=== PATIENT | male | born 1960 | race Caucasian/White ===

== ENCOUNTER 2023-08-21 10:17 | Day surgery (SDC) | payer OTHER, SELFPAY ==
[2023-08-21] VITALS (10 sets, daily range): BP systolic 117–144; BP diastolic 65–94; BMI 34.8
[2023-08-21] MEDS: LOW STRENGTH ASPIRIN 81 MG PO (11:12)
[2023-08-21] MEDS: NSS 302 ML IV (11:13)
[2023-08-21 11:18] LABS: Blood Urea Nitrogen 14 mg/dl (9-20); Calcium 9.1 mg/dl (8.4-10.2); Carbon Dioxide 22 mmol/L (22-30); Chloride 110 mmol/L (98-107); Estimated Creatinine Clearance 104 ml/min; Glucose 101 mg/dl (70-99); Potassium 4.3 mmol/L (3.5-5.1); Sodium 139 mmol/L (135-145); eGFR > 60.00
[2023-08-21 11:27] LABS: Hematocrit 41.2 % (39.0-52.0); Hemoglobin 13.5 g/dL (13.0-18.0); Mean Corp Hgb Conc. 32.8 g/dL (33.0-37.0); Mean Corpuscular Hgb 30.1 pg (27.0-31.0); Mean Corpuscular Volume 91.8 fL (80.0-94.0); Mean Platelet Volume 9.7 fL (7.4-10.4); Platelet Count 313 10^3/uL (130-400); Red Blood Cell Count 4.49 10^6/uL (4.70-6.10); Red Cell Dist. Width 14.3 % (11.5-14.5); White Blood Cell Count 5.9 10^3/uL (4.8-10.8)
[2023-08-21] MEDS: NSS 1000 IV (13:23)
--- NOTE | 2023-08-21 13:35 | ITS.CL.CATH ---
Public Welfare Director - Catheterization
Cardiac Catheterization
Procedure Report:
LEFT HEART CATHETERIZATION
Date of Procedure: August 21, 2023
Referring: Sunitha Petersen
PROCEDURES:
1. Left heart catheterization, coronary angiogram.
2. Ultrasound-guided access
INDICATION: Neville is a 63-year-old gentleman with past medical history of hypertension, hyperlipidemia, coronary artery disease status post prior RCA and LAD stents, paroxysmal atrial fibrillation post SC on chronic anticoagulation with Eliquis
which was recently started and family history of premature coronary artery disease with his father having an SC in his 50s who was referred for a left heart catheterization after a significantly abnormal stress test which was performed after he
presented to the emergency room for chest discomfort and shortness of breath and was treated recently for possible bronchitis. His exercise nuclear stress test was completed on August 19, 2023 during which she walked 5 minutes and 45 seconds by the
Yeison protocol, achieving 7 METS and 97% of maximum predicted heart rate with hypotensive response to exercise. ECG was positive for ischemia with [address] depressions inferiorly and in V4 and V5 at peak exercise. ECG changes were slowly resolving
recovery and not fully normalized by 10 minutes in recovery. Delayed ECG poststress imaging were completely normal. He had occasional PVCs. He experienced exertional dyspnea and chest tightness which resolved 2 minutes in recovery. Perfusion
imaging showed a large area of moderate to severely decreased perfusion that is reversible in the basal anterior, basal anterolateral, mid anterior, mid anterolateral, apical anterior and apical lateral segments consistent with ischemia, involving
20% of the myocardium. Transient ischemic dilatation was present with ratio positive at 1.23. Gated images revealed an LVEF of 48%. Functional imaging showed mild hypokinesis of the mid anterior, mid anterolateral and apical anterior segments.
His last dose of Eliquis was Saturday morning.
ACCESS:
1. Right radial artery, 6 Faroese sheath, under ultrasound guidance.
HEMODYNAMICS : (mmHg)
AO (s/d) : 140/79
LV (s/d) : 144/10
LVEDP : 17
CORONARY FINDINGS
DOMINANCE: Right
LEFT MAIN: The left main artery is a large-caliber vessel which gives rise to the left anterior descending artery and the left circumflex artery. There is distal left main--eccentric, hazy, calcified 70% stenosis.
LEFT ANTERIOR DESCENDING: The left anterior descending artery is a large-caliber vessel which gives rise to 1 major diagonal branch as it courses through the anterior interventricular groove into the apex. There is an eccentric ostial LAD 50-60%
stenosis extending from the distal left main.
CIRCUMFLEX: The left circumflex artery is a medium caliber vessel which gives rise to 2 major obtuse marginal branches and a left posterolateral branch. Ostial left circumflex has an eccentric 50 to 60% stenosis and proximal to mid circumflex has a
40-50% stenosis there is a 60-70% ostial OM stenosis. Distal left circumflex has a focal 70 to 80% stenosis proximal to the left posterolateral branch.
RIGHT CORONARY ARTERY: The right coronary artery is a large-caliber, dominant vessel which gives rise to the right posterior descending artery and the right posterolateral system. There is diffuse long segment in the mid RCA of up to 70% stenosis.
SEDATION: 24 minutes of procedural sedation was utilized. An independent medical insurance coding specialist was present to assist with and help manage the patient's level of consciousness and physiologic status.
RADIATION SUMMARY: Fluoro Time (min): 1.9, Dose (mGy): 319.13, DAP (Gy.cm2) : 19.6
Closure Device: Vascular band over right radial artery, 11 cc of air.
CONCLUSIONS
1. Multivessel coronary artery disease involving the distal left main in the setting of significantly abnormal stress test.
2. Mildly elevated LVEDP.
RECOMMENDATIONS
1. Goal-directed medical therapy for significant coronary artery disease.
2. Referral to CT surgery as an outpatient for possible coronary bypass grafting with grafts to the LAD, OM1 +/-OM 2, distal RCA/RPDA.
3. Aggressive management of cardiovascular risk factors.
4. Referral eventually for outpatient cardiac rehab.
Copy to: Marco Allison, Sunitha Marcum
Lexus Chandra MD, FACC, [facility]
[2023-08-21] MEDS: NORVASC 2.5 MG PO (14:27)
== END 2023-08-21 16:35 | disposition home or self-care (01) ==
LOC: CATH 10:17
PROVIDERS: ATTENDING PHYSICIAN Internal Medicine Interventional Cardiology; CONSULT PHYSICIAN Thoracic Surgery (Cardiothoracic Vascular Surgery); OTHER PHYSICIAN Internal Medicine Cardiovascular Disease
DX: I25.10 Atherosclerotic heart disease of native coronary artery without angina pectoris (principal); I10 Essential (primary) hypertension; E78.5 Hyperlipidemia, unspecified; I48.0 Paroxysmal atrial fibrillation; I25.2 Old myocardial infarction; Z95.5 Presence of coronary angioplasty implant and graft; Z79.82 Long term (current) use of aspirin; Z79.01 Long term (current) use of anticoagulants
CPT/HCPCS: 99152; 99153; 76937; 80048; 85027; 93458; C1894; Q9967

== ENCOUNTER 2023-09-03 04:55 | Inpatient (IN) | payer OTHER, SELFPAY ==
[2023-08-29 09:05] VITALS: BMI 33.3
[2023-08-29 09:17] LABS: % Basophils 0.8 % (0-2); % Eosinophils 1.7 % (0-6); % Immature Granulocytes 0.5 % (0-0.5); % Lymphocytes 30.4 % (20.5-51.1); % Monocytes 5.6 % (1.7-9.3); Absolute Basophils 0.1 10^3/uL (0-0.2); Absolute Eosinophils 0.1 10^3/uL (0-0.7); Absolute Monocytes 0.4 10^3/uL (0.1-0.6); Hematocrit 38.3 % (39.0-52.0); Hemoglobin 12.8 g/dL (13.0-18.0); Mean Corp Hgb Conc. 33.4 g/dL (33.0-37.0); Mean Corpuscular Volume 89.7 fL (80.0-94.0); Mean Platelet Volume 9.4 fL (7.4-10.4); Nucleated Red Blood Cells % 0 % (-); Platelet Count 322 10^3/uL (130-400); Red Blood Cell Count 4.27 10^6/uL (4.70-6.10); Red Cell Dist. Width 13.8 % (11.5-14.5); White Blood Cell Count 6.5 10^3/uL (4.8-10.8)
[2023-08-29 09:24] LABS: APTT 27.8 Sec (23.4-35.0); INR 1.01; PT 13.3 Sec (11.4-14.6)
[2023-08-29 09:26] LABS: Urine Albumin Negative (Neg - Trace); Urine Bilirubin Negative (Negative); Urine Character Clear (Clear); Urine Color Yellow; Urine Glucose Negative (Negative); Urine Ketone Negative (Negative); Urine Leukocyte Negative (Negative); Urine Nitrite Negative (Negative); Urine Occult Blood Negative (Negative); Urine Urobilinogen Negative (Neg - 1+)
[2023-08-29 10:12] LABS: B.E. -0.9 mmol/L; HCO3 23.5 mmol/L (21-28); O2 Saturation % 98.8 % (94-98); PCO2 37 mmHg (35-48); PO2 103 mmHg (83-108); pH 7.41 (7.35-7.45)
--- NOTE | 2023-08-29 10:15 | CM ---
Met with Mr. Olson in [facility]. He states prior to admission he resides with his spouse in a two story home with two steps to enter. He states he has a full bathroom and bedroom on each floor. He states he usually goes upstairs to sleep. He
states prior to admission he was independent with ambulation and adls. He states he does not have any DME in the home. He states he has a prescription plan. He states his spouse will be home to assist in his care if needed. He resides in [facility] so he will need VNA services. The discharge plan is to return home with his spouse and VNA services when medically stable.
We reviewed pre-op and post-op routines. We reviewed the shower instruction. He has the soap, written instructions and the Cardiothoracic Surgery Educational Booklet. We also reviewed restrictions including sternal precautions and driving
restrictions. We discussed VNA Services because he resides in [place]. He is agreeable to VNA Services. The plan is for CABG on Sunday, September 03, 2023.
[2023-08-29 10:29] LABS: ALT (SGPT) 26 U/L (0-50); AST (SGOT) 35 U/L (17-59); Albumin 4.2 g/dl (3.5-5.0); Alkaline Phosphatase 116 U/L (38-126); Blood Urea Nitrogen 16 mg/dl (9-20); Calcium 9.3 mg/dl (8.4-10.2); Carbon Dioxide 25 mmol/L (22-30); Chloride 106 mmol/L (98-107); Direct Bilirubin 0.1 mg/dl (0.0-0.4); Estimated Creatinine Clearance 109 ml/min; Glucose 101 mg/dl (70-99); Potassium 4.5 mmol/L (3.5-5.1); Sodium 137 mmol/L (135-145); Total Bilirubin 0.6 mg/dl (0.2-1.3); eGFR > 60.00
[2023-08-29 12:03] LABS: Glycohemoglobin (HgbA1c) 5.7 % (4.0-5.6)
--- NOTE | 2023-09-01 21:24 | W.PN.CT ---
Today's Communication / Plan
-
Plan:
-No major issues overnight. Hemodynamically and neurologically intact
-Successfully extubated on 09/03/23 @ 1700
-Weaned off Levophed gtt overnight. Remains on insulin gtt per protocol
-No swan, U/O since OR 1120 mL
-Cont. current meds (ASA, Lipitor, Lopressor; will add Plavix today)
-Monitor chest tube output: med + L pleural 80/225 last 12/24hr. Will consider d/c of med CT and transition pleural to bulb
-A-line and SLIC d/c'd this AM @ 0430
-Transfer to tele phase once off insulin gtt
-D/C reid
-Maintain cordis
-Maintain temporary pacer wires (will cut before d/c home), insulate
-Encourage use of IS
-Wean off of O2 as tolerated
-OOB into chair/Ambulate
Assessment / Plan
-
Assessment:
-S/p On pump Cabg x 3 ( Mckeon- lad, svg - om, svg - pda)/L EVH /maze - encompass RF ablation/ LAAL with 35 clip/ RSF , by Dr. Arciniega, 09/03/23, pod#1
-Severe 3v/70% distal LM CAD
-Hx [place] S/P PCI with YVONNE to prox. LAD and prox/mid RCA, 11/03/2012
-[place]
-A-fib (on Eliquis @ home)
-LVEF 50% per intraop ROBERT
-HTN
-Hyperlipidemia
-Prediabetes (AIC 5.7)
-Class 1 obesity (BMI 33.3)
-Probable CHANTALE
-Bronchitis
-SOB
-Former tobacco abuse
-Hx of fatty liver (resolved 07/25/2016)
-Hx of lumbar disc herniation
-Hemorrhoids
-Benign colon polyps
-Anxiety/Depression
-S/p hemorrhoidectomy
-S/P ORIF of L Knee
-S/p vein stripping/ligation of RLE
-Acute postop blood loss/Anemia (stable without transfusion)
-Acute postop atelectasis
-Acute postop hypovolemia with subsequent hypervolemia
Discussed patient care with: Cardiology, Nursing, Respiratory Therapy, Pharmacy and Care Team
Subjective
Procedure
On pump Cabg x 3 ( Mckeon- lad, svg - om, svg - pda)/L EVH /maze - encompass RF ablation/ LAAL with 35 clip/ RSF , by Dr. Arciniega, 09/03/23, pod#1
-
Date of Service: September 01, 2023
Pt c/o incisional pain, otherwise feels well
Objective Data
-
Lab Results
08/29/23 08:41
08/29/23 08:22
PT 13.3 Sec (11.4-14.6) 08/29/23 08:41
INR 1.01 08/29/23 08:41
APTT 27.8 Sec (23.4-35.0) 08/29/23 08:41
Vital Signs
SaO2: 96 (2L)
Physical Exam
-
General: Awake and AOx3
Cardiovascular: Regular rate & rhythm, No Murmurs, No Rub and No Gallop
Respiratory: Decreased Breath Sounds (at bases, otherwise clear)
Sternum: Stable
Incision: Clean, Dry, Intact and Dressing Intact
Extremities: No Edema
Data Reviewed
-
Lab Results: Results Reviewed
Medications: Active Meds Reviewed
Chest X-Ray: Report Reviewed and Image Reviewed
ECG: Report Reviewed and Image Reviewed
[2023-09-03] VITALS (13 sets, daily range): BP systolic 85–110; BP diastolic 60–82; BMI 33.3; BMI 33.1
[2023-09-03] MEDS: BACTROBAN 2% OINTMENT 1 APPLIC NASAL ×2 (05:10→19:47)
[2023-09-03] MEDS: MAGNESIUM OXIDE 500 MG PO (05:26)
[2023-09-03] MEDS: PROTONIX 40 MG PO (05:26)
[2023-09-03] MEDS: LOPRESSOR 25 MG PO (05:26)
--- NOTE | 2023-09-03 05:54 | PTCARENOTE ---
patient admitted into 2263. admission done, labs drawn and sent. patient clipped and prepped. confirmed 2 showers and ordered meds taken. CHG cloth wipes used. will await call from Dr Arciniega at home.
--- NOTE | 2023-09-03 06:43 | W.CVOR.SURPR ---
CVOR Surgeon Immed Pre Op
-
I have examined this patient prior to performance of the scheduled procedure.
The patient's condition is unchanged from the time of the dictated/written History and
Physical and the patient is able to undergo the scheduled procedure.
[2023-09-03 07:52] LABS: ACT+ - POC 101 Seconds (82-134)
[2023-09-03 07:59] LABS: B.E. - POC -3.1 mmol/L; Glucose - POC 100 mg/dl (65-99); HCO3 - POC 23 mmol/L (21-29); Hematocrit - POC 36 % PCV (42-52); Hemodilution- POC No; Hemoglobin Calculated - POC 12.2; Ionized Calcium - POC 1.21 mmol/L (1.12-1.27); O2 Saturation %Calculated-POC 99.9 5 (92-96); PCO2 - POC 44 mmHg (35-45); PO2 - POC 272 mmHg (80-100); Potassium - POC 4.1 mmol/L (3.6-5.0); Sodium - POC 146 mmol/L (135-145); pH - POC 7.33 (7.35-7.45)
[2023-09-03 08:05] LABS: Urine Albumin Negative (Neg - Trace); Urine Bilirubin Negative (Negative); Urine Character Clear (Clear); Urine Color Yellow; Urine Glucose Negative (Negative); Urine Ketone Negative (Negative); Urine Leukocyte Negative (Negative); Urine Nitrite Negative (Negative); Urine Occult Blood Negative (Negative); Urine Specific Gravity 1.025 (<1.030); Urine Urobilinogen Negative (Neg - 1+)
[2023-09-03 09:33] LABS: ACT+ - POC 938 Seconds (82-134)
[2023-09-03 09:36] LABS: B.E. - POC -1.6 mmol/L; Glucose - POC 151 mg/dl (65-99); HCO3 - POC 24 mmol/L (21-29); Hematocrit - POC 28 % PCV (42-52); Hemodilution- POC Yes; Hemoglobin Calculated - POC 9.6; Ionized Calcium - POC 1.07 mmol/L (1.12-1.27); PCO2 - POC 45 mmHg (35-45); PO2 - POC 480 mmHg (80-100); Sodium - POC 140 mmol/L (135-145); pH - POC 7.34 (7.35-7.45)
[2023-09-03 09:51] LABS: B.E. - POC -1.3 mmol/L; Glucose - POC 152 mg/dl (65-99); HCO3 - POC 24 mmol/L (21-29); Hematocrit - POC 29 % PCV (42-52); Hemodilution- POC Yes; Hemoglobin Calculated - POC 9.7; Ionized Calcium - POC 1.04 mmol/L (1.12-1.27); O2 Saturation %Calculated-POC 99.8 5 (92-96); PCO2 - POC 39 mmHg (35-45); PO2 - POC 215 mmHg (80-100); Potassium - POC 4.8 mmol/L (3.6-5.0); Sodium - POC 139 mmol/L (135-145); pH - POC 7.39 (7.35-7.45)
[2023-09-03 10:02] LABS: ACT+ - POC 816 Seconds (82-134)
[2023-09-03 10:13] LABS: B.E. - POC -3.3 mmol/L; Glucose - POC 120 mg/dl (65-99); HCO3 - POC 22 mmol/L (21-29); Hematocrit - POC 28 % PCV (42-52); Hemodilution- POC Yes; Hemoglobin Calculated - POC 9.5; Ionized Calcium - POC 1.08 mmol/L (1.12-1.27); PCO2 - POC 38 mmHg (35-45); PO2 - POC 420 mmHg (80-100); Potassium - POC 4.5 mmol/L (3.6-5.0); Sodium - POC 142 mmol/L (135-145); pH - POC 7.37 (7.35-7.45)
[2023-09-03 10:17] LABS: ACT+ - POC 656 Seconds (82-134)
[2023-09-03 10:33] LABS: ACT+ - POC 498 Seconds (82-134)
[2023-09-03 10:50] LABS: ACT+ - POC 93 Seconds (82-134)
[2023-09-03 10:56] LABS: B.E. - POC -3.4 mmol/L; Glucose - POC 94 mg/dl (65-99); HCO3 - POC 23 mmol/L (21-29); Hematocrit - POC 27 % PCV (42-52); Hemodilution- POC Yes; Hemoglobin Calculated - POC 9.3; Ionized Calcium - POC 1.34 mmol/L (1.12-1.27); O2 Saturation %Calculated-POC 96.5 5 (92-96); PCO2 - POC 43 mmHg (35-45); PO2 - POC 92 mmHg (80-100); Sodium - POC 146 mmol/L (135-145); pH - POC 7.32 (7.35-7.45)
--- NOTE | 2023-09-03 11:32 | W.PN.CT.SURG ---
CT Surgery Operative Note
-
Pre-op Diagnosis: cad, left main
PAF
Post-op Diagnosis: Same
Procedure: Cabg x 3
Mckeon- lad
svg - om1
svg - pda
On pump
maze - encompass RF ablation
LEVH
LAAL with 35 clip
RSF
TTFM
Primary Surgeon: Highbloom
Assisting Surgeons: Pack - leg and chest
Specimen: None
Cultures: None
Complications / Blood Loss: None
Findings: Mustapha with preserved EF pre and post - no new wma
EDWARD without clot, completely occluded
good conduits
good targets
appropriate TTFM for grafts
[2023-09-03 11:39] LABS: Glucose - Point of Care 126 mg/dl (70-99)
[2023-09-03 11:51] LABS: B.E. -1.8 mmol/L; HCO3 24.7 mmol/L (21-28); O2 Saturation % 99.4 % (94-98); PCO2 49 mmHg (35-48); PO2 153 mmHg (83-108); Potassium 4.1 mMOL/L (3.5-5.1); Sodium 139 mMOL/L (136-145); pH 7.31 (7.35-7.45)
[2023-09-03 11:52] LABS: Hematocrit 29.5 % (39.0-52.0); Hemoglobin 10.2 g/dL (13.0-18.0); Platelet Count 257 10^3/uL (130-400)
[2023-09-03] MEDS: DILAUDID 0.5 MG IV ×2 (11:57→19:47)
[2023-09-03 12:02] LABS: APTT 26.5 Sec (23.4-35.0); INR 1.45; PT 17.5 Sec (11.4-14.6)
--- NOTE | 2023-09-03 12:10 | PTCARENOTE ---
Received pt from CVOR at 1130; pt intubated and sedated; NSR on monitor and VSS; Epicardial V wires set to 40/10 no pacing noted; RIJ Cordis and SLIC, Left A-line, and PIV x1 all lines leveled and zeroed; Levo, Precedex, and Insulin infusing see
flow sheet for details; Lungs diminished; ET Tube 8 @ 24, vent settings SIMV Fio2 60%, Rate 14, Tidal Volume 550 and PEEP 5; Ct x2 to -20 wall suction, no air leak and no crepitus noted; hypoactive vowel sounds; Ellison catheter draining clear yellow
urine; palpable pulses throughout; no edema noted; all surgical sites C/D/I; see nursing documentation for further details.
[2023-09-03 12:18] LABS: Blood Urea Nitrogen 12 mg/dl (9-20); Estimated Creatinine Clearance 109 ml/min; Glucose 118 mg/dl (70-99)
--- NOTE | 2023-09-03 12:27 | W.PN.UPDATE ---
Update Note
Progress Note Update
63 y/o male presented to the hospital for an elective CABG with Dr. Arciniega
IV fluids: 1000
U.O.:� 300
UF:� 700
Blood:� None
Wires:� V- Wires
Inotropes:� None
Pressors:� Levo
Sedatives:� Precedex
�
NEURO: sedated on precedex, pupils +2mm B/L
RESP: #8OT @24cm> 16/500/60/5 Lungs clear B/L. 2 mediastinal and pleural chest tubes to -20cm suction. Sanguineous drainage
CV: RRR +S1, S2, no S3, no�rub, no murmur. median sternotomy.
ABD: round, soft, no BS
EXT: no edema, +2/4 DP pulses B/L, no femoral bruit, LE KEATON wrap intact; XX radial A-line intact
: Ellison with clear yellow urine
�
A/P: POD #0 s/p CABG x3
ROBERT: EF�NML
- wean and extubate
- start ASA when extubated
- Wean levo for MAPs >65
- Monitor CT output
- F/U post op EKG and labs
- Cardiology consulted
�
# acute surgical blood loss anemia-expected
- trend CBC
- Continue IV iron infusions�
�
#PAF
- s/p MAZE
- No intraop Amio
- monitor of Afib
# Hyperglycemia
- insulin infusion x 24h
�
# Hyperlipidemia
- resume�statin when tolerating PO
- resume repatha on DC
[2023-09-03 12:32] LABS: Glucose - Point of Care 115 mg/dl (70-99)
[2023-09-03] MEDS: NEURONTIN PO ×2 (12:47→16:05)
[2023-09-03] MEDS: VITAMIN C PO (12:47)
[2023-09-03] MEDS: ANCEF 10 IV ×2 (12:47)
[2023-09-03] MEDS: NSS 500 IV (12:48)
[2023-09-03] MEDS: TYLENOL PO (13:22)
[2023-09-03 13:33] LABS: Glucose - Point of Care 116 mg/dl (70-99)
[2023-09-03 14:31] LABS: Glucose - Point of Care 126 mg/dl (70-99)
--- NOTE | 2023-09-03 14:49 | CM ---
Chart reviewed. Patient is in the OR today. Patient is independent of ADLS, lives with his in a 2 S[address], 2 JOHNNY, 0 DME. Patient is outside of the driving radius to go home with CT Transitional RN, referral sent to [facility]. Plan is
for the patient to return home with VN. CM to follow
--- NOTE | 2023-09-03 15:02 | CON.INTV ---
Consultation
Consultation Request
Date/Time Consultation Requested: 09/03/2023
Date/Time Consultation Performed: 09/03/2023
Requesting Provider: Dr. Arciniega
Performing Provider: Dr. Orlin Richardson
Reason for Consultation: Status post coronary artery bypass-postoperative ICU care
Medical History
-
History of Present Illness:
63-year-old man with past medical history significant for coronary artery disease, atrial fibrillation, hypertension, hyperlipidemia, prior stents in the past in 2012 due to progressive symptoms and abnormal stress test underwent cardiac
catheterization that showed multivessel coronary artery disease with mildly elevated LVEDP. He was deemed candidate for revascularization and was admitted to the hospital on 09/03/2023.
Coronary artery bypass underwent without complications.
Patient currently is in the critical care unit, intubated on mechanical ventilation.
Chest tube is in place without significant air leak or output.
Records reviewed.
Past Medical History
Past Medical History: Other (See assessment and plan section)
Social History
Tobacco: Former Smoker
Alcohol: Occasional
Drug: None
Personal:
Family History
Family History: Unable to Obtain
Allergies / Home Medications
Allergies
Allergy/AdvReac Type Severity Reaction Status Date / Time
No Known Allergies Allergy Verified 08/28/23 13:44
Home Medications
�Medication �Instructions �Recorded �Confirmed �Last Taken �Type
sertraline 100 mg tablet 100 mg PO DAILY 05/22/11 09/03/23 09/02/23 07:00 History
aspirin 81 mg tablet,delayed 81 mg PO DAILY ##0 11/06/12 09/03/23 09/02/23 07:00 Rx
release
nitroglycerin 0.4 mg sublingual 0.4 mg sublingual [id number] PRN 11/06/12 08/28/23 Unknown Rx
tablet chest pain ##30
atorvastatin 80 mg tablet 80 mg PO QPM 07/23/13 09/03/23 09/02/23 20:00 History
amlodipine 2.5 mg tablet 2.5 mg PO DAILY #30 tabs 08/21/23 09/03/23 09/02/23 07:00 Rx
apixaban 5 mg tablet (Eliquis) 5 mg PO BID 08/21/23 09/03/23 08/30/23 07:00 History
evolocumab 140 mg/mL subcutaneous 140 mg SC Q2W 08/21/23 09/03/23 08/26/23 History
pen injector (feleciaenzo DesouzaMonsterguillermo)
Vitamin B-12 1 tab PO DAILY 08/28/23 08/28/23 Unknown History
Vitamin C 1 tab PO DAILY 08/28/23 08/28/23 Unknown History
Vitamin D3 1 tab PO DAILY 08/28/23 08/28/23 Unknown History
ibuprofen 200 mg tablet 600 mg PO Q6H PRN pain 08/28/23 09/03/23 08/26/23 History
vitamin E 1 tab PO DAILY 08/28/23 08/28/23 Unknown History
Review of Systems
-
Unable to Obtain full review of systems at this time due to: Patient Intubation
Vitals / Labs / Diagnostic Testing
Vital Signs
Temp Pulse Resp BP Pulse Ox
97.3 F 83 16 94/73 100
09/03/23 14:02 09/03/23 14:00 09/03/23 14:02 09/03/23 13:34 09/03/23 14:02
Lab Data
09/03/23 11:39
Laboratory Results
09/03/23
11:39
PT 17.5 H
INR 1.45
APTT 26.5
pH 7.31 L
pCO2 49 H
pO2 153 H
HCO3 24.7
O2 Delivery Level
Diagnostic Testing:
Physical Exam
-
HEENT: Normocephalic
Cardiovascular: S1/S2
Respiratory: Clear, Non-Labored Respirations and Other (Chest tube in place without air leak.)
GI: Soft and Non Distended
Neurology: Awake, Alert, Oriented and Other (Sedated, mechanical ventilation.)
Skin: Warm
General: Respiratory Distress (n)
Assessment
-
Status post coronary artery bypass 09/03/2023- Dr. Arciniega.
Postoperative mechanical ventilation
Postoperative anemia
Conditions present prior admission:
Coronary artery disease with prior stents
Depression
Hyperlipidemia
Atrial fibrillation
Former smoker
Anxiety and depression
Fatty liver in the past
Plan recommendations:
He is doing well postop-currently on mechanical ventilation and appears comfortable.
ABG reviewed: . Mild hypercapnia, should resolve as sedation wears off.
Continue SIMV mode with no change
Spontaneous breathing trial per protocol once sedation wears off.
Anemia noted-no evidence of acute bleeding
Follow H&H serially
Hemodynamics -acceptable, on low-dose Levophed.
Wean off as able.
Adequate urinary output and renal function.
Chest tube with no excessive drainage-no air leak.
Chest x-ray reviewed: With no pneumothorax or fluid collections. Left lower lobe subsegmental atelectasis.
Remain nothing by mouth
Head of the bed elevation
Glycemic control per protocol
DVT prophylaxis when safe from the surgical perspective.
Critical care statement: A total of 31 minutes of critical care time was provided for this patient today. This includes management of unstable vital signs, evaluation of the patient at bedside, reviewing the patient's pertinent medical records
including ventilator settings, arterial blood gases, radiographs, microbiology, laboratory evaluations and discussion with primary team, critical care nursing, and respiratory therapy.
--- NOTE | 2023-09-03 15:08 | PTCARENOTE ---
Addendum entered by Pricila Cast RN 09/03/23 15:19:
Pt placed back to SIMV
Original Note:
Respiratory at bedside, pt placed on CPAP.
[2023-09-03] MEDS: ALBUMIN 5% 250 IV (15:24)
[2023-09-03 15:34] LABS: Glucose - Point of Care 124 mg/dl (70-99)
--- NOTE | 2023-09-03 15:38 | W.PN.CARDCBS ---
Addendum entered and electronically signed by Shamar Caruso MD 09/03/23 16:15:
patient seen and examined
agree with PAMELLA Quintero's notes and assessment
agree with PAMELLA Quintero's plan
exam:
intubated and sedated
awake on vent however
sr on tele
cor regular no rub
tubes relatively intact
lungs clear but diminished
abd soft nt
Impression:
CAD s/p Encompass MAZE, EDWARD clip and CABG with HOOD to LAD, SVG to OM-1 and SVG to PDA 09/03/23
CAD
s/p 3.0 and 3.0 mm Xience V drug-eluting stenting to the mid and proximal RCA and 3.5 mm Xience V drug-eluting stent to the mid LAD 11/03/12
s/p PTCA of the ostial OM-1 07/24/23Acute NJ, peak Troponin 20
Ischemic CM EF 28%, now recovered to 55%
Left shoulder pain
Hyperlipidemia
Paroxysmal atrial fibrillation
Exercise nuclear stress test 08/19/23: Completed 5:45 min Yeison protocol for 97% MPHR, basal anterior, basal anterolateral, mid anterior, mid anterolateral, apical anterior and apical lateral moderately to severely decreased perfusion consistent with
ischemia involving 20% of the myocardium, defects persist in prone imaging
ROBERT 09/03/23: pre-op EF 50%, no regional WMA, trace TR. Post-op the left atrial appendage is no longer visible with no blood flow confirmed by color Doppler. The left ventricular function has improved to 60-65%. The mitral regurgitation is no longer
present. Otherwise unchanged exam.
Plan:
-Patient with a known h/o NJ and then RCA and LAD PCI in 2012. Patient was seen at an outside ER for chest pain and SOB and was treated for bronchitis in 07/2023, but due to ongoing symptoms he saw Dr. Allison in the office 07/23/23 and was sent for
exercise nuclear stress test. As outline above the stress test was markedly abnormal and patient was referred for cardiac catheterization which revealed multivessel CAD. Patient was then seen by CT surgeon in the office and presented today for CABG.
-Patient remains on Levophed at 4 with BP 88/65
-Remains on ventilator, but waking up and extubation planned for later today
-Aspirin is going to restart once taking POs and then Plavix is ordered.
-Patient with a h/o paroxysmal Afib from time of his NJ in 2012 and he was briefly on amiodarone at that time, but this was eventually stopped. Patient most recently started on Eliquis 5 mg BID at his cardiology office visit 07/23/23. Now s/p EDWARD
clip and encompass MAZE. Will follow tele post-op.
Original Note:
Today's Communication / Plan
-
Levophed at 4
HD stable
Impression / Plan
-
PCP: Letha MANCIA
Cardiology: Dr. Allison
Impression:
CAD s/p Encompass MAZE, EDWARD clip and CABG with HOOD to LAD, SVG to OM-1 and SVG to PDA 09/03/23
CAD
s/p 3.0 and 3.0 mm Xience V drug-eluting stenting to the mid and proximal RCA and 3.5 mm Xience V drug-eluting stent to the mid LAD 11/03/12
s/p PTCA of the ostial OM-1 07/24/23
Acute NJ, peak Troponin 20
Ischemic CM EF 28%, now recovered to 55%
Left shoulder pain
Hyperlipidemia
Paroxysmal atrial fibrillation
Exercise nuclear stress test 08/19/23: Completed 5:45 min Yeison protocol for 97% MPHR, basal anterior, basal anterolateral, mid anterior, mid anterolateral, apical anterior and apical lateral moderately to severely decreased perfusion consistent with
ischemia involving 20% of the myocardium, defects persist in prone imaging
ROBERT 09/03/23: pre-op EF 50%, no regional WMA, trace TR. Post-op the left atrial appendage is no longer visible with no blood flow confirmed by color Doppler. The left ventricular function has improved to 60-65%. The mitral regurgitation is no longer
present. Otherwise unchanged exam.
Plan:
-Patient with a known h/o NJ and then RCA and LAD PCI in 2012. Patient was seen at an outside ER for chest pain and SOB and was treated for bronchitis in 07/2023, but due to ongoing symptoms he saw Dr. Allison in the office 07/23/23 and was sent for
exercise nuclear stress test. As outline above the stress test was markedly abnormal and patient was referred for cardiac catheterization which revealed multivessel CAD. Patient was then seen by CT surgeon in the office and presented today for CABG.
-Patient remains on Levophed at 4 with BP 88/65
-Remains on ventilator, but waking up and extubation planned for later today
-Aspirin is going to restart once taking POs and then Plavix is ordered.
-Patient with a h/o paroxysmal Afib from time of his NJ in 2012 and he was briefly on amiodarone at that time, but this was eventually stopped. Patient most recently started on Eliquis 5 mg BID at his cardiology office visit 07/23/23. Now s/p EDWARD
clip and encompass MAZE. Will follow tele post-op.
Progress Note - A P Mechanic
Subjective
Date of Service: September 03, 2023
Intubated and waking up
Objective
Labs:
09/03/23 11:39
Labs
Hgb 10.2 g/dL (13.0-18.0) L D 09/03/23 11:39
Hct 29.5 % (39.0-52.0) L 09/03/23 11:39
Plt Count 257 10^3/uL (130-400) D 09/03/23 11:39
PT 17.5 Sec (11.4-14.6) H 09/03/23 11:39
INR 1.45 09/03/23 11:39
APTT 26.5 Sec (23.4-35.0) 09/03/23 11:39
Sodium 137 mmol/L (135-145) 08/29/23 08:22
Potassium 4.5 mmol/L (3.5-5.1) 08/29/23 08:22
BUN 12 mg/dl (9-20) 09/03/23 11:39
Creatinine 0.8 mg/dL (0.7-1.3) 09/03/23 11:39
Glucose 118 mg/dl (70-99) H 09/03/23 11:39
Vital Signs and I&O:
Vital Signs
Temp Pulse Resp BP Pulse Ox
97.9 F 82 14 104/82 100
09/03/23 15:00 09/03/23 15:10 09/03/23 15:10 09/03/23 14:02 09/03/23 15:10
Vital Signs
Temp Pulse Resp BP Pulse Ox
97.9 F 82 14 104/82 100
09/03/23 15:00 09/03/23 15:10 09/03/23 15:10 09/03/23 14:02 09/03/23 15:10
Intake & Output
09/01/23 09/02/23 09/03/23 09/04/23
06:59 06:59 06:59 06:59
Intake Total 144.1 / 144.1
Output Total 365 / 365
Balance -220.9 / -220.9
Physical Exam
Physical Exam
GEN: NAD. Awake and alert
HEENT: EOMI
LUNGS: On the ventilator without wheeze
CV: Reg, no murmur
ABD: soft, BS+, NT, ND
EXT: No clubbing, cyanosis, lesions or edema B/L
NEURO: Gross non-focal
SKIN: Warm, dry and pink. No rash
[2023-09-03 15:41] LABS: Hematocrit 34.9 % (39.0-52.0); Hemoglobin 12.3 g/dL (13.0-18.0); Platelet Count 326 10^3/uL (130-400)
[2023-09-03] MEDS: ANCEF 5 IV ×2 (15:52→23:14)
[2023-09-03] MEDS: OFIRMEV 100 IV (16:01)
[2023-09-03 16:08] LABS: B.E. -4.2 mmol/L; Ionized Calcium 1.19 mMOL/L (1.15-1.33); O2 Saturation % 99.4 % (94-98); PCO2 50 mmHg (35-48); PO2 123 mmHg (83-108); Potassium 4.4 mMOL/L (3.5-5.1); Sodium 140 mMOL/L (136-145); pH 7.27 (7.35-7.45)
--- NOTE | 2023-09-03 16:12 | PTCARENOTE ---
ABGs reviewed with CV MEDICAL STENOGRAPHER; pt remains on CPAP; next ABGs at 1640.
[2023-09-03 16:41] LABS: Glucose - Point of Care 130 mg/dl (70-99)
[2023-09-03 16:43] LABS: B.E. -3.4 mmol/L; HCO3 22.7 mmol/L (21-28); O2 Saturation % 99.5 % (94-98); PCO2 44 mmHg (35-48); PO2 129 mmHg (83-108); pH 7.32 (7.35-7.45)
--- NOTE | 2023-09-03 17:00 | PTCARENOTE ---
ABGs reviewed with CV TRANSPORTATION AGENT; respiratory at bedside and pt extubated; 6L NC 95%.
[2023-09-03] MEDS: LIPITOR PO (17:07)
[2023-09-03] MEDS: LOW STRENGTH ASPIRIN 81 MG PO (18:54)
[2023-09-03 19:25] LABS: Glucose - Point of Care 138 mg/dl (70-99)
[2023-09-03] MEDS: SENOKOT-S 1 TABLET PO (19:47)
--- NOTE | 2023-09-03 20:00 | PTCARENOTE ---
Assumed care of pt from hemant RN. Pt AAOx3. KING. Following commands appropriately. Pt SR on monitor. HR 70s. Temporary epicardial V-wire set to VVI 40/6/5. BP 100s/60s. Palpable pulses. Minor swelling noted on bilateral hands. CVP 4-8. Pt on 6 L
NC. POX 94%. Lung sounds diminished at the base. Deep breathing and IS encouraged. Left pleural and mediastinal CT to one plueravac to -20 suction, no airleak/tidaling/crepitus noted at this time. Temperature sensing Ellison catheter CDI and draining
clear/yellow urine. Abdomen soft/nontender. Hypoactive BS. Pt tolerating small sips of water/ice chips. Sternal incision approximated w/ surgical adhesive and open to air. Left knee incision CDI and wrapped in KEATON bandage. Left groin puncture CDI.
Right IJ cordis w/ SLIC CDI, CVP zeroed and flushed. Left radial a-line CDI, zeroed and flushed. PIV x1 CDI and flushes w/o issue. Glycemic protocol followed. Levo infusing per protocol. Pt c/o pain - see MAR. See worklist for full nursing
assessment, VS, and interventions. Call gomez within reach of patient.
[2023-09-03] MEDS: SODIUM BICARBONATE 50 MEQ IV (21:02)
[2023-09-03 21:17] LABS: Glucose - Point of Care 117 mg/dl (70-99)
[2023-09-03] MEDS: CALCIUM CHLORIDE 10% SYRINGE 60 MG IV (21:18)
[2023-09-03 22:03] LABS: Glucose - Point of Care 113 mg/dl (70-99)
[2023-09-03] MEDS: TYLENOL 1000 MG PO (22:05)
[2023-09-03] MEDS: NEURONTIN 100 MG PO (22:05)
[2023-09-03 23:12] LABS: Glucose - Point of Care 122 mg/dl (70-99)
[2023-09-03] MEDS: ROXICODONE 5 MG PO (23:14)
[2023-09-04] VITALS (16 sets, daily range): BP systolic 94–145; BP diastolic 47–86; PULSE 77; O2SAT 89–92; BMI 33.5
[2023-09-04 00:14] LABS: Glucose - Point of Care 105 mg/dl (70-99)
--- NOTE | 2023-09-04 00:45 | PTCARENOTE ---
Pt reassessed. SR on monitor. HR 70s. Temporary epicardial v-wire intact. BP 100s-110s/50-60s. Levo titrated off per protocol. Pt on 2 L NC. POX 94-97%. CT assessment unchanged from previous. Left radial a-line intact, zeroed and flushed. Right IJ
cordis w/ slick CDI, CVP zeroed and flushed. All surgical sites stable. Glycemic protocol followed. Calcium chloride and bi-carb administered per order - see MAR. Pt c/o heartburn feeling. CTPA aware and simethicone ordered. Call gomez within reach
of pt.
[2023-09-04] MEDS: MYLICON 80 MG PO ×2 (01:05→17:45)
[2023-09-04] MEDS: DILAUDID 0.5 MG IV (01:09)
[2023-09-04 02:10] LABS: Glucose - Point of Care 112 mg/dl (70-99)
[2023-09-04 03:36] LABS: Hematocrit 31.2 % (39.0-52.0); Hemoglobin 10.9 g/dL (13.0-18.0); Mean Corp Hgb Conc. 34.9 g/dL (33.0-37.0); Mean Corpuscular Hgb 30.4 pg (27.0-31.0); Mean Corpuscular Volume 86.9 fL (80.0-94.0); Mean Platelet Volume 9.1 fL (7.4-10.4); Platelet Count 230 10^3/uL (130-400); Red Blood Cell Count 3.59 10^6/uL (4.70-6.10); Red Cell Dist. Width 13.4 % (11.5-14.5); White Blood Cell Count 16.5 10^3/uL (4.8-10.8)
[2023-09-04] MEDS: ROXICODONE 5 MG PO ×5 (03:44→22:37)
[2023-09-04 03:45] LABS: Hepatitis C Antibody Negative (Negative)
[2023-09-04 04:02] LABS: Blood Urea Nitrogen 18 mg/dl (9-20); Calcium 8.8 mg/dl (8.4-10.2); Carbon Dioxide 24 mmol/L (22-30); Chloride 109 mmol/L (98-107); Estimated Creatinine Clearance 124 ml/min; Glucose 109 mg/dl (70-99); Magnesium 2.3 mg/dl (1.6-2.3); Potassium 4.4 mmol/L (3.5-5.1); Sodium 137 mmol/L (135-145); eGFR > 60.00
[2023-09-04 04:17] LABS: Glucose - Point of Care 101 mg/dl (70-99)
--- NOTE | 2023-09-04 04:59 | PTCARENOTE ---
Pt reassessed. SR on monitor. HR 70s. BP stable. Pt on 2 L NC. POX 96%. A-line dc'd per order. [place] w/ CVP dc'd per CTPA. Labs drawn and sent. EKG obtained. See MAR for medication administration. All surgical sites stable. CT assessment unchanged
from original. Call gomez within reach.
[2023-09-04] MEDS: TYLENOL 1000 MG PO ×2 (06:07→22:33)
[2023-09-04 06:12] LABS: Glucose - Point of Care 125 mg/dl (70-99)
[2023-09-04] MEDS: ANCEF 5 IV (06:42)
--- NOTE | 2023-09-04 07:30 | PTCARENOTE ---
Assumed care of patient from overnight babysitter RN. AAO x 3 Sitting up in the chair. SR on monitor. Epicardial wire to back up of VVI 35/6 Room air 91%. IS to 500. Chest tubes x2 to -20 cm suction. No air leak or crepitus noted. Abdomen soft and non
tender. Ellison draining clear terese urine. Surgical sites c,d,i. Pulses palpable . Plan for day discussed.
--- NOTE | 2023-09-04 07:42 | W.PN.ANS.POP ---
Anesthesia Post Operative
- Anesthesia Post Op Note
Vital Signs Stable-See Nursing Note: Yes
Airway Patent: Yes
Adequate Pain Control: Yes
Change in Mental Status: No
Current Postoperative Nausea & Vomiting: No
Anesthesia Complications: No
General Anesthetic Recall: No
Unplanned Admission: No
Post Op Hydration Adequate: Yes
[2023-09-04 08:34] LABS: Glucose - Point of Care 105 mg/dl (70-99)
[2023-09-04] MEDS: MAGNESIUM OXIDE 500 MG PO ×2 (08:53→19:59)
[2023-09-04] MEDS: PLAVIX 75 MG PO (08:53)
[2023-09-04] MEDS: PROTONIX 40 MG PO (08:53)
[2023-09-04] MEDS: LOW STRENGTH ASPIRIN 81 MG PO (08:53)
[2023-09-04] MEDS: LOPRESSOR 12.5 MG PO ×2 (08:54→19:59)
[2023-09-04] MEDS: BACTROBAN 2% OINTMENT 1 APPLIC NASAL ×2 (08:54→19:59)
[2023-09-04] MEDS: LIDOCAINE 4% PATCH 1 PATCH TOPICAL (08:54)
[2023-09-04] MEDS: SENOKOT-S 1 TABLET PO ×2 (08:54→19:59)
[2023-09-04] MEDS: VITAMIN C 500 MG PO (08:54)
[2023-09-04] MEDS: NEURONTIN 100 MG PO ×3 (08:54→22:34)
[2023-09-04] MEDS: ZOLOFT 100 MG PO (08:54)
--- NOTE | 2023-09-04 10:28 | W.PN.UPDATE ---
Update Note
Progress Note Update
no complaints
vss
nc O2
nsr
labs ok
s/p cabg/maze
doing well
[2023-09-04 11:35] LABS: Glucose - Point of Care 138 mg/dl (70-99)
--- NOTE | 2023-09-04 12:00 | PTCARENOTE ---
Insulin drip discontinued per MD order.
[2023-09-04] MEDS: NSS IV (12:03)
[2023-09-04] MEDS: FLEXERIL 5 MG PO ×2 (12:21→22:37)
--- NOTE | 2023-09-04 12:23 | PTCARENOTE ---
Lt pleural chest tube placed to bulb suction. Mediastinal chest tube removed at this time. Pt tolerated w/o incidence. Epicardial wires insulated per MD order. Assessment otherwise unchanged. VSS
--- NOTE | 2023-09-04 13:50 | W.PN.CARDCBS ---
Addendum entered and electronically signed by Lexus Chandra MD 09/04/23 15:35:
I saw and examined the patient.
The Bulk Station Agent's note was reviewed and I agree with the note.
Comment: Overall doing well. CP is tolerable. Extubated without issues.
Plan for DC one of the chest tubes today. SR on tele
Vitals and labs reviewed. Pericardial rub on exam, otherwise NAD, A+Ox3, OOB in chair, RR, Normal S1 and S2. warm ext.
Reccs:
1. COnt supportive post op care
2. Pain control per primary team
3. Cont to monitor ECG, ST changes possibly related to pericarditis but clinically no complaints.
4. Hx of aib prior to CT surger s/p MAZE and EDWARD clip. SR on tele.
Lexus Chandra MD, FAC, [facility]
Original Note:
Today's Communication / Plan
-
No chest pain, possible pericarditis changes noted on ECG
In SR with h/o pAfib prior to surgery and then intra-op MAZE and EDWARD clip
Impression / Plan
-
PCP: Letha MANCIA
Cardiology: Dr. Allison
Impression:
CAD s/p Encompass MAZE, EDWARD clip and CABG with HOOD to LAD, SVG to OM-1 and SVG to PDA 09/03/23
CAD
s/p 3.0 and 3.0 mm Xience V drug-eluting stenting to the mid and proximal RCA and 3.5 mm Xience V drug-eluting stent to the mid LAD 11/03/12
s/p PTCA of the ostial OM-1 07/24/23
Acute [place], peak Troponin 20
Ischemic CM EF 28%, now recovered to 55%
Left shoulder pain
Hyperlipidemia
Paroxysmal atrial fibrillation
Exercise nuclear stress test 08/19/23: Completed 5:45 min Yeison protocol for 97% MPHR, basal anterior, basal anterolateral, mid anterior, mid anterolateral, apical anterior and apical lateral moderately to severely decreased perfusion consistent with
ischemia involving 20% of the myocardium, defects persist in prone imaging
ROBERT 09/03/23: pre-op EF 50%, no regional WMA, trace TR. Post-op the left atrial appendage is no longer visible with no blood flow confirmed by color Doppler. The left ventricular function has improved to 60-65%. The mitral regurgitation is no longer
present. Otherwise unchanged exam.
Plan:
-Patient was extubated 09/03/23 evening and then Levophed weaned off overnight as well
-Daily aspirin and Plavix ordered
-ECG from 09/04/23 reviewed and there are diffuse ST changes consistent with possible pericarditis. No chest pain.
-Patient with a h/o paroxysmal Afib from time of his [place] in 2012 and he was briefly on amiodarone at that time, but this was eventually stopped. Remains in SR on ECG 09/04/23
-Patient was not on OAC until office visit for chest pain 07/23/23 at which point he was started on Eliquis 5 mg BID. Now s/p EDWARD clip and encompass MAZE. Post-op ROBERT showed left atrial appendage is no longer visible with no blood flow confirmed by
color Doppler.
HPI: Patient with a known h/o AK and then RCA and LAD PCI in 2012. Patient was seen at an outside ER for chest pain and SOB and was treated for bronchitis in 07/2023, but due to ongoing symptoms he saw Dr. Allison in the office 07/23/23 and was sent
for exercise nuclear stress test. As outline above the stress test was markedly abnormal and patient was referred for cardiac catheterization which revealed multivessel CAD. Patient was then seen by CT surgeon in the office and presented today for
CABG.
Progress Note - Damage Cutter
Subjective
Date of Service: September 04, 2023
No chest pain
Objective
Labs:
09/04/23 03:27
09/04/23 03:27
Labs
Hgb 10.9 g/dL (13.0-18.0) L 09/04/23 03:27
Hct 31.2 % (39.0-52.0) L 09/04/23 03:27
Plt Count 230 10^3/uL (130-400) D 09/04/23 03:27
PT 17.5 Sec (11.4-14.6) H 09/03/23 11:39
INR 1.45 09/03/23 11:39
APTT 26.5 Sec (23.4-35.0) 09/03/23 11:39
Sodium 137 mmol/L (135-145) 09/04/23 03:27
Potassium 4.4 mmol/L (3.5-5.1) 09/04/23 03:27
BUN 18 mg/dl (9-20) 09/04/23 03:27
Creatinine 0.7 mg/dL (0.7-1.3) 09/04/23 03:27
Glucose 109 mg/dl (70-99) H 09/04/23 03:27
Vital Signs and I&O:
Vital Signs
Temp Pulse Resp BP Pulse Ox
98.5 F 72 16 130/81 92
09/04/23 11:43 09/04/23 11:43 09/04/23 11:43 09/04/23 10:02 09/04/23 11:43
Vital Signs
Temp Pulse Resp BP Pulse Ox
98.5 F 72 16 130/81 92
09/04/23 11:43 09/04/23 11:43 09/04/23 11:43 09/04/23 10:02 09/04/23 11:43
Intake & Output
09/02/23 09/03/23 09/04/23 09/05/23
06:59 06:59 06:59 06:59
Intake Total 949.9 / 949.9 527 / 527
Output Total 1460 / 1460 100 / 100
Balance -510.1 / -510.1 427 / 427
Physical Exam
Physical Exam
GEN: AAOx3
HEENT: EOMI
LUNGS: No audible wheeze
CV: SR on tele
ABD: ND
EXT: No edema
NEURO: Gross non-focal
SKIN: No rash
[2023-09-04] MEDS: TYLENOL PO (14:59)
--- NOTE | 2023-09-04 15:36 | CM ---
Chart reviewed. Patient is independent of ADLS, lives with his in a 2 S[address], 2 JOHNNY, 0 DME. Patient is outside of the driving radius of the CT Transitional RN. Referral placed to [facility] [place], they do not accept his insurance. I called [facility] and
they do not accept his insurance. I called [facility] (service provided through [facility]) and they were unable to provide me a list of VN agencies. I left a message with the patients PCP to inquire on VN agencies in the area. Multiple
referrals sent. Plan is for the patient to return home. CM to follow
--- NOTE | 2023-09-04 15:37 | W.PN.INTV ---
Today's Communication / Plan
Recommendations
Continue postoperative care
Follow chest tube output
Wean off insulin drip
Advance diet
Increase activity as able
Follow H&H
Sign off
Assessment
-
Status post coronary artery bypass 09/03/2023- Dr. Arciniega.
Postoperative mechanical ventilation
Postoperative anemia
Conditions present prior admission:
Coronary artery disease with prior stents
Depression
Hyperlipidemia
Atrial fibrillation
Former smoker
Anxiety and depression
Fatty liver in the past
Plan recommendations:
Doing very well postoperative day 1
Pain is controlled
Incentive spirometry encouraged
Increase activity as tolerated
Anemia noted-no evidence of acute bleeding
Follow H&H serially
Hemodynamically stable off vasopressors.
Normal renal function.
Continue to follow-up daily electrolytes.
Chest tube with no excessive drainage-no air leak.
Chest x-ray reviewed 09/04/2023 : With no pneumothorax or fluid collections. Left lower lobe subsegmental atelectasis.
Advance diet as tolerated
Head of the bed elevation
Glycemic control per protocol
DVT prophylaxis when safe from the surgical perspective.
Patient has been downgraded to telemetry.
Critical care team will sign off
Subjective Dataa
Subjective Data
Date of Service:
Date of Service: September 04, 2023
Chief Complaint: Wreath Inspector Follow Up (Status post coronary artery bypass)
Subjective:
Patient denies any particular complaints
Comfortably in bed
Denies cough or phlegm production
Denies shortness of breath at rest
Review of Systems
General: Fever (n)
Cardiopulmonary: Dyspnea (none at rest), Cough (n) and Sputum Production (n)
GI: Abdominal Pain (n) and Nausea (n)
Objective Data
Data Reviewed
Vital Signs / I&O / Oxygen:
Vital Signs
Temp Pulse Resp BP Pulse Ox
98.5 F 75 16 94/47 92
09/04/23 11:43 09/04/23 15:10 09/04/23 11:43 09/04/23 12:00 09/04/23 15:16
Intake and Output
09/03/23 09/04/23 09/05/23
06:59 06:59 06:59
Intake Total 949.9 / 949.9 767 / 767
Output Total 1460 / 1460 125 / 125
Balance -510.1 / -510.1 642 / 642
SaO2 [CPAP] 99
SaO2 [SIMV] 97
SaO2 92
Nasal Cannula flow liters per 2
minute
Physical Exam
General: Respiratory Distress and Comfortable
HEENT: Normocephalic
Cardiovascular: S1-S2
Respiratory: Clear, Non-Labored Respirations and Chest Tube (No excessive drainage or air leak)
GI: Soft and Non Distended
Neurology: Awake and Alert
Labs/Micro/Reports
Lab Data
09/04/23 03:27
09/04/23 03:27
Laboratory Results
09/03/23 09/03/23
15:55 16:37
pH 7.27 L 7.32 L
pCO2 50 H 44
pO2 123 H 129 H
HCO3 23.0 22.7
O2 Delivery Level
[2023-09-04] MEDS: LIPITOR 80 MG PO (15:58)
--- NOTE | 2023-09-04 16:45 | PTCARENOTE ---
Has not voided since reid cath removed this am. Denies urge to void. Bladder scanned for [address] PATIENT SERVICES SPECIALIST notified. no action needed at this time
--- NOTE | 2023-09-04 19:57 | PTCARENOTE ---
[facility] Patient is alert and oriented x4, pleasant. Patient has mild 2/10 sternal incision pain, does not want anything for that. NSR. HR 80s. Audible heart tones. BP 145/64. Palpable pulses. Trace generalized edema.
RIJ cordis maintained with KVO. PIV maintained. 2L NC maintained. Oxygen saturation 91%. Upon auscultation, lung sounds diminished at the bases, especially LLL. LP CT maintained to bulb suction with small serosanguineous drainage. Abdomen round. Per
patient, passing gas. No BM yet. Voids in urinal. Assist x1 back to bed from the chair. Sternal incision is approximated with surgical adhesive and open to air. L knee incision is approximated with surgical adhesive and open to air. L groin puncture
site is approximated with surgical adhesive and open to air. CT dressing is clean, dry, intact. Will continue to monitor.
--- NOTE | 2023-09-04 23:08 | PTCARENOTE ---
Vital signs stable. NSR with occasional PVCs. HR 80s-90s. BP 142/66. RIJ cordis maintained with KVO. Patient laying in bed, attempting to sleep. Administered pain medications per order. Increased to 4L NC. Oxygen saturation 92%. LP CT maintained to
bulb suction with small serosanguineous drainage. Urinal at bedside.
[2023-09-05] VITALS (10 sets, daily range): BP systolic 109–146; BP diastolic 67–80; PULSE 91; O2SAT 90–92; BMI 33.6
--- NOTE | 2023-09-05 03:10 | PTCARENOTE ---
Vital signs stable. NSR. HR 70s-80s. BP 124/77. 4L NC maintained. Oxygen saturation 92%. Patient would like to get washed up later, refusing at this time. [facility] cordis dressing changed. Patient wants to get OOB around 0600.
[2023-09-05 05:10] LABS: Hematocrit 29.6 % (39.0-52.0); Hemoglobin 10.1 g/dL (13.0-18.0); Mean Corp Hgb Conc. 34.1 g/dL (33.0-37.0); Mean Corpuscular Hgb 30.6 pg (27.0-31.0); Mean Corpuscular Volume 89.7 fL (80.0-94.0); Mean Platelet Volume 9.5 fL (7.4-10.4); Platelet Count 217 10^3/uL (130-400); Red Cell Dist. Width 14.2 % (11.5-14.5); White Blood Cell Count 16.8 10^3/uL (4.8-10.8)
[2023-09-05] MEDS: TYLENOL 1000 MG PO ×3 (05:10→22:58)
[2023-09-05] MEDS: ROXICODONE 5 MG PO ×2 (05:10→11:47)
--- NOTE | 2023-09-05 05:29 | W.PN.CT ---
Today's Communication / Plan
-
-pod #2
-no issues overnight
-CT output: L pleur 120/245 (bulb)
-continue current meds (ASA, Plavix, Lopressor, Amio, Lipitor, Protonix)
-wean off O2 as tolerated
-encourage IS, OOB, ambulate
Assessment / Plan
-
Assessment:
-S/p On pump Cabg x 3 ( Mckeon- lad, svg - om, svg - pda)/L EVH /maze - encompass RF ablation/ LAAL with 35 clip/ RSF , by Dr. Arciniega, 09/03/23, pod#2
-Severe 3v/70% distal LM CAD
-Hx [place] S/P PCI with YVONNE to prox. LAD and prox/mid RCA, 11/03/2012
-USA
-A-fib (on Eliquis @ home)
-LVEF 50% per intraop ROBERT
-HTN
-Hyperlipidemia
-Prediabetes (AIC 5.7)
-Class 1 obesity (BMI 33.3)
-Probable CHANTALE
-Bronchitis
-SOB
-Former tobacco abuse
-Hx of fatty liver (resolved 07/25/2016)
-Hx of lumbar disc herniation
-Hemorrhoids
-Benign colon polyps
-Anxiety/Depression
-S/p hemorrhoidectomy
-S/P ORIF of L Knee
-S/p vein stripping/ligation of RLE
-Acute postop blood loss/Anemia (stable without transfusion)
-Acute postop atelectasis
-Acute postop hypovolemia with subsequent hypervolemia
Discussed patient care with: Nursing and Care Team
Subjective
Procedure
On pump Cabg x 3 ( Mckeon- lad, svg - om, svg - pda)/L EVH /maze - encompass RF ablation/ LAAL with 35 clip/ RSF , by Dr. Arciniega, 09/03/23, pod#1
-
Date of Service: September 05, 2023
Objective Data
-
Lab Results
09/05/23 04:57
PT 17.5 Sec (11.4-14.6) H 09/03/23 11:39
INR 1.45 09/03/23 11:39
APTT 26.5 Sec (23.4-35.0) 09/03/23 11:39
Vital Signs
Vital Signs
Temp Pulse Resp BP Pulse Ox
98.8 F 82 16 124/77 91
09/05/23 03:06 09/05/23 05:00 09/05/23 03:06 09/05/23 03:06 09/05/23 05:[address]
CT Intake/Output/Weight
09/04/23 09/04/23 09/05/23
06:59 18:59 06:59
Intake Total 305.7 / 949.9 927 / 1507 580 / 1507
Output Total 745 / 1460 225 / 870 645 / 870
Balance -439.3 / -510.1 702 / 637 -65 / 637
SaO2: 91
Physical Exam
-
General: Awake and AOx3
Cardiovascular: Regular rate & rhythm, No Murmurs and No Rub
Respiratory: Decreased Breath Sounds
Sternum: Stable
Incision: Clean, Dry and Intact
Extremities: Edema +1
Abdomen: soft, nondistended, increased bowel sounds
Data Reviewed
-
Lab Results: Results Reviewed
Medications: Active Meds Reviewed
Chest X-Ray: Report Reviewed
ECG: Report Reviewed and Image Reviewed
[2023-09-05 05:44] LABS: Blood Urea Nitrogen 23 mg/dl (9-20); Calcium 8.4 mg/dl (8.4-10.2); Carbon Dioxide 30 mmol/L (22-30); Chloride 102 mmol/L (98-107); Estimated Creatinine Clearance 109 ml/min; Glucose 154 mg/dl (70-99); Magnesium 2.3 mg/dl (1.6-2.3); Potassium 4.4 mmol/L (3.5-5.1); Sodium 135 mmol/L (135-145); eGFR > 60.00
--- NOTE | 2023-09-05 07:30 | PTCARENOTE ---
Assumed care of patient from collection systems technician RN. HOLLIO x 3 Sitting up in chair. SR on monitor. Epicardial wires insulated. Lt pleural chest tube to bulb suction, emptied and reconstituted. Abdomen soft and non tender. Passing flatus, appetite good.
Trace anasarca appreciated. Plan for day discussed.
[2023-09-05] MEDS: VITAMIN C 500 MG PO (08:17)
[2023-09-05] MEDS: PROTONIX 40 MG PO (08:17)
[2023-09-05] MEDS: SENOKOT-S 1 TABLET PO ×2 (08:17→19:53)
[2023-09-05] MEDS: ZOLOFT 100 MG PO (08:17)
[2023-09-05] MEDS: BACTROBAN 2% OINTMENT 1 APPLIC NASAL ×2 (08:17→19:52)
[2023-09-05] MEDS: LOW STRENGTH ASPIRIN 81 MG PO (08:17)
[2023-09-05] MEDS: LIDOCAINE 4% PATCH 1 PATCH TOPICAL (08:17)
[2023-09-05] MEDS: NEURONTIN 100 MG PO (08:17)
[2023-09-05] MEDS: PLAVIX 75 MG PO (08:17)
[2023-09-05] MEDS: MAGNESIUM OXIDE 500 MG PO ×2 (08:18→19:53)
[2023-09-05] MEDS: LOPRESSOR 12.5 MG PO ×2 (08:18→10:14)
[2023-09-05] MEDS: FLEXERIL 5 MG PO (08:18)
--- NOTE | 2023-09-05 10:19 | W.PN.CARDCBS ---
Today's Communication / Plan
-
Supportive postop care
Impression / Plan
-
PCP: Letha MANCIA
Cardiology: Dr. Allison
Impression:
CAD s/p Encompass MAZE, EDWARD clip and CABG with HOOD to LAD, SVG to OM-1 and SVG to PDA 09/03/23
CAD
s/p 3.0 and 3.0 mm Xience V drug-eluting stenting to the mid and proximal RCA and 3.5 mm Xience V drug-eluting stent to the mid LAD 11/03/12
s/p PTCA of the ostial OM-1 07/24/23
Acute [place], peak Troponin 20
Ischemic CM EF 28%, now recovered to 55%
Left shoulder pain
Hyperlipidemia
Paroxysmal atrial fibrillation
Exercise nuclear stress test 08/19/23: Completed 5:45 min Yeison protocol for 97% MPHR, basal anterior, basal anterolateral, mid anterior, mid anterolateral, apical anterior and apical lateral moderately to severely decreased perfusion consistent with
ischemia involving 20% of the myocardium, defects persist in prone imaging
ROBERT 09/03/23: pre-op EF 50%, no regional WMA, trace TR. Post-op the left atrial appendage is no longer visible with no blood flow confirmed by color Doppler. The left ventricular function has improved to 60-65%. The mitral regurgitation is no longer
present. Otherwise unchanged exam.
Plan:
s/p On pump Cabg x 3 ( Hood- lad, svg - om, svg - pda)/L EVH /maze - encompass RF ablation/ LAAL with 35 clip/ RSF , by Dr. Arciniega, 09/03/23, pod#2 for USA/severe 3v/70% distal LM CAD
-Hemodynamically stable sitting out of bed to chair
-Off pressors
-Continue aspirin. Plavix ordered for graft patency.
-ECG from 09/04/23 reviewed and there are diffuse ST changes consistent with possible pericarditis. No chest pain.
-Consider use of IV Lasix today for fluid retention postsurgery
-Check outpatient record for lipid profile. Continue high intensity statin. Goal LDL ideally <55 mg/dL
-Chest tube management per CT surgery
-Use of incentive spirometer reviewed with patient
-Increase activity
Hx of paroxysmal Afib from time of his [place] in 2012
-No recent documented atrial fibrillation
-Remains in SR; monitor tele
-Patient was not on OAC until office visit for chest pain 07/23/23 at which point he was started on Eliquis 5 mg BID.
- s/p EDWARD clip and encompass MAZE. Post-op ROBERT showed left atrial appendage is no longer visible with no blood flow confirmed by color Doppler.
- Decision whether or not to resume anticoagulation will be discuss with his primary back end developer and CT surgery
Elevated hemoglobin A1c at 5.7% consistent with prediabetes/insulin resistance
-Goal normoglycemia
-Consider addition of Jardiance as an outpatient
HPI: Patient with a known h/o [place] and then RCA and LAD PCI in 2012. Patient was seen at an outside ER for chest pain and SOB and was treated for bronchitis in 07/2023, but due to ongoing symptoms he saw Dr. Allison in the office 07/23/23 and was sent
for exercise nuclear stress test. As outline above the stress test was markedly abnormal and patient was referred for cardiac catheterization which revealed multivessel CAD. Patient was then seen by CT surgeon in the office and presented today for
CABG.
Progress Note - It Sales Consultant
Subjective
Date of Service: September 05, 2023
Seen and examined sitting out of bed to chair. Slight dizziness upon getting up this morning which has resolved. No chest pain or pressure. No shortness of breath. Does report swelling in his legs and hands
Objective
Labs:
09/05/23 04:57
09/05/23 04:57
Labs
Hgb 10.1 g/dL (13.0-18.0) L 09/05/23 04:57
Hct 29.6 % (39.0-52.0) L 09/05/23 04:57
Plt Count 217 10^3/uL (130-400) 09/05/23 04:57
PT 17.5 Sec (11.4-14.6) H 09/03/23 11:39
INR 1.45 09/03/23 11:39
APTT 26.5 Sec (23.4-35.0) 09/03/23 11:39
Sodium 135 mmol/L (135-145) 09/05/23 04:57
Potassium 4.4 mmol/L (3.5-5.1) 09/05/23 04:57
BUN 23 mg/dl (9-20) H 09/05/23 04:57
Creatinine 0.8 mg/dL (0.7-1.3) 09/05/23 04:57
Glucose 154 mg/dl (70-99) H 09/05/23 04:57
Vital Signs and I&O:
Vital Signs
Temp Pulse Resp BP Pulse Ox
98.7 F 86 16 125/73 92
09/05/23 08:00 09/05/23 09:00 09/05/23 08:00 09/05/23 08:15 09/05/23 08:00
Vital Signs
Temp Pulse Resp BP Pulse Ox
98.7 F 86 16 125/73 92
09/05/23 08:00 09/05/23 09:00 09/05/23 08:00 09/05/23 08:15 09/05/23 08:00
Intake & Output
09/03/23 09/04/23 09/05/23 09/06/23
06:59 06:59 06:59 06:59
Intake Total 949.9 / 949.9 1507 / 1507 250 / 250
Output Total 1460 / 1460 870 / 870
Balance -510.1 / -510.1 637 / 637 250 / 250
Physical Exam
Physical Exam
General: No acute distress, AAOX3
Neck: Negative JVD
Heart: Regular, positive S1/S2, No murmur. Positive chest tube
Lungs: CTA b/l, negative wheezes/rales/rhonchi. Midline incision intact
Abd: Positive BS, NT/ND, neg rebound/rigidity/guarding
Ext: + edema
Neuro: nonfocal
--- NOTE | 2023-09-05 12:16 | PTCARENOTE ---
Tolerating sitting in chair and ambulating in room, voiding w/o issue. Oxygen weaned to room air while sitting up , but once laying down pulse ox dipps down to 83% on room air. Oxygen titrated to 3 L to sustain pulse ox of 91%. Denies SOB, Using
IS independently to 750. VSS. Chest tube remains with thin serous/sang fluid. Reconstituted. Assessment otherwise unchanged from prior. Will monitor
--- NOTE | 2023-09-05 12:31 | CM ---
Chart reviewed. Patient is independent of ADLS, lives with his in a 2 STH, 2 JOHNNY, 0 DME. Patient's health insurance is not accepted at any of the BREAKFAST AND ROOM ATTENDANT I sent referrals to ([facility], [place], [facility]). Patient's
PCP is only familiar with [facility]. I notified Jerel ARAMBULA. Plan is for the patient to have his chest tube sutures removed before he goes home. Plan is for the patient to return home with his . CM to follow up.
[2023-09-05] MEDS: NSS 500 IV (13:53)
[2023-09-05] MEDS: NEURONTIN 200 MG PO ×2 (16:38→22:58)
[2023-09-05] MEDS: LIPITOR 80 MG PO (16:38)
--- NOTE | 2023-09-05 16:55 | PTCARENOTE ---
Able to nap this afternoon states feeling a bit better. Remains on 3 L NC pulse ox 90%. Pain well managed. VSS. Assessment unchanged from prior.
[2023-09-05] MEDS: LOPRESSOR 25 MG PO (19:52)
--- NOTE | 2023-09-05 20:20 | PTCARENOTE ---
Assumed care of patient at 1900. Patient found in bed at time of assessment. Patient is AOx4, follows commands appropriately, moves all extremities. Patient is assistx1 oob reports some unsteadiness when ambulating. Lung sounds are diminished
throughout, patient is on 3L via NC with saO2 at 90%, L pleural CT to bulb suction with red sanguineous output. Heart sounds have a regular rate and rhythm, patient is NSR on the monitor, +1 generalized anasarca is noted with normal palpable pulses.
Active BS throughout all four quadrants of round obese abdomen no post op BM at this time. Patient is voiding using urinal clear [place] urine. Patient has a sternal incision approx with surg adhesive HARVINDER, L groin puncture approx with surg adhesive
HARVINDER, and LLE incisionx2 approx with surg adhesive WATER RESOURCES PROJECT MANAGER. There is an ABD dressing over CT wounds that is CDI. Patient has R IJ cordis receiving KVO and R hand PIV for intermittent infusion. VSS. Patient has no complaints at this time.
[2023-09-05] MEDS: FLEXERIL 10 MG PO (22:59)
[2023-09-06] VITALS (13 sets, daily range): BP systolic 13.9–159; BP diastolic 66–85; PULSE 91; O2SAT 86–91; BMI 33.7
--- NOTE | 2023-09-06 00:20 | PTCARENOTE ---
Patient reassessed. Patient desatting to 83 on 3L O2 while asleep. Increased to 5L saO2 improved to 90%. Patient remains in NSR on the monitor. Patient is stable.
--- NOTE | 2023-09-06 00:28 | W.PN.CT ---
Today's Communication / Plan
-
POD #3
-no major issues overnight
-CT output: L pleur 55/95 (bulb); to consider discontinuation later today
-continue current meds (ASA, Plavix, Lopressor, Amio, Lipitor, Protonix)
>>BB dose increased on 09/04
- Placed on nasal cannula overnight for sats in the low 80s; Wean off O2 as tolerated
- Encourage IS, OOB, ambulate
- DC cordis
- Maintain pacing wires until discharge
Assessment / Plan
-
Assessment:
-S/p On pump Cabg x 3 ( Mckeon- lad, svg - om, svg - pda)/L EVH /maze - encompass RF ablation/ LAAL with 35 clip/ RSF , by Dr. Arciniega, 09/03/23, pod#2
-Severe 3v/70% distal LM CAD
-Hx [place] S/P PCI with YVONNE to prox. LAD and prox/mid RCA, 11/03/2012
-[place]
-A-fib (on Eliquis @ home)
-LVEF 50% per intraop ROBERT
-HTN
-Hyperlipidemia
-Prediabetes (AIC 5.7)
-Class 1 obesity (BMI 33.3)
-Probable CHANTALE
-Bronchitis
-SOB
-Former tobacco abuse
-Hx of fatty liver (resolved 07/25/2016)
-Hx of lumbar disc herniation
-Hemorrhoids
-Benign colon polyps
-Anxiety/Depression
-S/p hemorrhoidectomy
-S/P ORIF of L Knee
-S/p vein stripping/ligation of RLE
-Acute postop blood loss/Anemia (stable without transfusion)
-Acute postop atelectasis
-Acute postop hypovolemia with subsequent hypervolemia
Subjective
Procedure
On pump Cabg x 3 ( Mckeon- lad, svg - om, svg - pda)/L EVH /maze - encompass RF ablation/ LAAL with 35 clip/ RSF , by Dr. Arciniega, 09/03/23, pod#3
-
Date of Service: September 06, 2023
Objective Data
-
09/06/23 03:48
09/06/23 03:48
PT 17.5 Sec (11.4-14.6) H 09/03/23 11:39
INR 1.45 09/03/23 11:39
APTT 26.5 Sec (23.4-35.0) 09/03/23 11:39
Vital Signs
Vital Signs
Temp Pulse Resp BP Pulse Ox
98.9 F 83 18 109/70 86
09/05/23 23:00 09/05/23 23:04 09/05/23 23:00 09/05/23 23:04 09/05/23 23:04
CT Intake/Output/Weight
09/05/23 09/05/23 09/06/23
06:59 18:59 06:59
Intake Total 580 / 1507 1010 / 1010
Output Total 645 / 870 370 / 745 375 / 745
Balance -65 / 637 640 / 265 -375 / 265
SaO2: 86
Physical Exam
-
General: AOx3
Cardiovascular: Regular rate & rhythm
Respiratory: Other (fine crackles at the bases)
Sternum: Stable
Incision: Clean, Dry and Intact
[2023-09-06 03:54] LABS: Hemoglobin 9.2 g/dL (13.0-18.0); Mean Corp Hgb Conc. 34.1 g/dL (33.0-37.0); Mean Corpuscular Hgb 30.7 pg (27.0-31.0); Mean Platelet Volume 9.3 fL (7.4-10.4); Platelet Count 185 10^3/uL (130-400); Red Cell Dist. Width 13.9 % (11.5-14.5); White Blood Cell Count 12.2 10^3/uL (4.8-10.8)
--- NOTE | 2023-09-06 04:03 | PTCARENOTE ---
Patient reassessed. Patient's saO2 at 93% on 5L via NC. Weaned to 4L O2 saO2 at 90%. All other VSS. Remains NSR on the monitor. AM labs obtained. AM hygiene care provided. Patient has no complaints at this time.
[2023-09-06 04:57] LABS: Blood Urea Nitrogen 17 mg/dl (9-20); Calcium 8.1 mg/dl (8.4-10.2); Carbon Dioxide 30 mmol/L (22-30); Chloride 101 mmol/L (98-107); Estimated Creatinine Clearance 109 ml/min; Glucose 133 mg/dl (70-99); Magnesium 2.2 mg/dl (1.6-2.3); Sodium 135 mmol/L (135-145); eGFR > 60.00
[2023-09-06] MEDS: ROXICODONE 5 MG PO (07:53)
[2023-09-06] MEDS: LOW STRENGTH ASPIRIN 81 MG PO (07:53)
[2023-09-06] MEDS: VITAMIN C 500 MG PO (07:53)
[2023-09-06] MEDS: PLAVIX 75 MG PO (07:53)
[2023-09-06] MEDS: BACTROBAN 2% OINTMENT 1 APPLIC NASAL ×2 (07:53→19:39)
[2023-09-06] MEDS: PROTONIX 40 MG PO (07:53)
[2023-09-06] MEDS: LOPRESSOR 25 MG PO ×2 (07:53→19:38)
[2023-09-06] MEDS: ZOLOFT 100 MG PO (07:54)
[2023-09-06] MEDS: SENOKOT-S 1 TABLET PO ×2 (07:54→19:38)
[2023-09-06] MEDS: LIDOCAINE 4% PATCH 1 PATCH TOPICAL (07:54)
[2023-09-06] MEDS: TYLENOL 1000 MG PO ×3 (07:54→22:37)
[2023-09-06] MEDS: NEURONTIN 200 MG PO ×3 (07:54→22:36)
[2023-09-06] MEDS: MAGNESIUM OXIDE 500 MG PO ×2 (07:54→19:38)
[2023-09-06] MEDS: DULCOLAX 10 MG PO (08:03)
--- NOTE | 2023-09-06 08:47 | PTCARENOTE ---
Assumed care of patient from slot shift manager RN. AAO x3 Flat affect. Pain management discussed this am. SR on monitor. Epicardial wire insulated. 3 L 96%, IS to 750 . CHERRY but recovers with rest. Abdomen with positive bowel sounds t/o. Voiding
w/o issue. Plus one general anasarca noted. Pulses palpable. Plan for day discussed.
[2023-09-06] MEDS: LASIX 40 MG IV (08:59)
[2023-09-06] MEDS: NSS IV (09:18)
--- NOTE | 2023-09-06 09:57 | PTCARENOTE ---
pleural chest tube removed at this time. Pt tolerated w/o issue. RT IJ cordis also removed at this time. Resting in bed after.
--- NOTE | 2023-09-06 11:38 | W.PN.CARDCBS ---
Today's Communication / Plan
-
Supportive postoperative care
Uptitrate beta-jn as able
Outpatient cardiac follow-up to be arranged
Impression / Plan
-
PCP: Letha MANCIA
Cardiology: Dr. Allison
Impression:
CAD s/p Encompass MAZE, EDWARD clip and CABG with HOOD to LAD, SVG to OM-1 and SVG to PDA 09/03/23
CAD
s/p 3.0 and 3.0 mm Xience V drug-eluting stenting to the mid and proximal RCA and 3.5 mm Xience V drug-eluting stent to the mid LAD 11/03/12
s/p PTCA of the ostial OM-1 07/24/23
Acute MN, peak Troponin 20
Ischemic CM EF 28%, now recovered to 55%
Left shoulder pain
Hyperlipidemia
Paroxysmal atrial fibrillation
Exercise nuclear stress test 08/19/23: Completed 5:45 min Yeison protocol for 97% MPHR, basal anterior, basal anterolateral, mid anterior, mid anterolateral, apical anterior and apical lateral moderately to severely decreased perfusion consistent with
ischemia involving 20% of the myocardium, defects persist in prone imaging
ROBERT 09/03/23: pre-op EF 50%, no regional WMA, trace TR. Post-op the left atrial appendage is no longer visible with no blood flow confirmed by color Doppler. The left ventricular function has improved to 60-65%. The mitral regurgitation is no longer
present. Otherwise unchanged exam.
Plan:
s/p On pump Cabg x 3 ( Hood- lad, svg - om, svg - pda)/L EVH /maze - encompass RF ablation/ LAAL with 35 clip/ RSF , by Dr. Arciniega, 09/03/23, pod#2 for USA/severe 3v/70% distal LM CAD
-Hemodynamically stable sitting out of bed to chair
-Off pressors
-Continue aspirin. Plavix ordered for graft patency.
-ECG from 09/04/23 reviewed and there are diffuse ST changes consistent with possible pericarditis. No chest pain.
-Consider use of IV Lasix today for fluid retention postsurgery
-Check outpatient record for lipid profile. Continue high intensity statin. Goal LDL ideally <55 mg/dL
-Chest tube management per CT surgery
-Use of incentive spirometer reviewed with patient
-Increase activity
Hx of paroxysmal Afib from time of his MN in 2012
-No recent documented atrial fibrillation
-Remains in SR; monitor tele
-uptitrate beta-jn as blood pressure allows
-Patient was not on OAC until office visit for chest pain 07/23/23 at which point he was started on Eliquis 5 mg BID.
- s/p EDWARD clip and encompass MAZE. Post-op ROBERT showed left atrial appendage is no longer visible with no blood flow confirmed by color Doppler.
- no plan to discharge on Eliquis anticoagulation unless he has recurrence of atrial fibrillation.
Elevated hemoglobin A1c at 5.7% consistent with prediabetes/insulin resistance
-Goal normoglycemia
-Consider addition of Jardiance as an outpatient
HPI: Patient with a known h/o MN and then RCA and LAD PCI in 2012. Patient was seen at an outside ER for chest pain and SOB and was treated for bronchitis in 07/2023, but due to ongoing symptoms he saw Dr. Allison in the office 07/23/23 and was sent
for exercise nuclear stress test. As outline above the stress test was markedly abnormal and patient was referred for cardiac catheterization which revealed multivessel CAD. Patient was then seen by CT surgeon in the office and presented today for
CABG.
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
Subjective
Date of Service: September 06, 2023
Seen ambulating around the halls with cardiac rehab and later examined in his room. Feels well and denies chest pain, shortness of breath or dizziness. Voiding well. Chest tubes removed.
Objective
Labs:
09/06/23 03:48
09/06/23 03:48
Labs
Hgb 9.2 g/dL (13.0-18.0) L 09/06/23 03:48
Hct 27.0 % (39.0-52.0) L 09/06/23 03:48
Plt Count 185 10^3/uL (130-400) 09/06/23 03:48
PT 17.5 Sec (11.4-14.6) H 09/03/23 11:39
INR 1.45 09/03/23 11:39
APTT 26.5 Sec (23.4-35.0) 09/03/23 11:39
Sodium 135 mmol/L (135-145) 09/06/23 03:48
Potassium 4.0 mmol/L (3.5-5.1) 09/06/23 03:48
BUN 17 mg/dl (9-20) 09/06/23 03:48
Creatinine 0.8 mg/dL (0.7-1.3) 09/06/23 03:48
Glucose 133 mg/dl (70-99) H 09/06/23 03:48
Vital Signs and I&O:
Vital Signs
Temp Pulse Resp BP Pulse Ox
99.4 F 82 18 119/74 97
09/06/23 07:57 09/06/23 11:32 09/06/23 11:22 09/06/23 11:32 09/06/23 11:22
Vital Signs
Temp Pulse Resp BP Pulse Ox
99.4 F 82 18 119/74 97
09/06/23 07:57 09/06/23 11:32 09/06/23 11:22 09/06/23 11:32 09/06/23 11:22
Intake & Output
09/04/23 09/05/23 09/06/23 09/07/23
06:59 06:59 06:59 06:59
Intake Total 949.9 / 949.9 1507 / 1507 1130 / 1130 390 / 390
Output Total 1460 / 1460 870 / 870 1160 / 1160 0 / 0
Balance -510.1 / -510.1 637 / 637 -30 / -30 390 / 390
Physical Exam
Physical Exam
General: No acute distress, AAOX3
Neck: Negative JVD
Heart: Regular, positive S1/S2, No murmur.
Lungs: CTA b/l, negative wheezes/rales/rhonchi. Midline incision intact
Abd: Positive BS, NT/ND, neg rebound/rigidity/guarding
Ext:trace edema
Neuro: nonfocal
--- NOTE | 2023-09-06 11:57 | PTCARENOTE ---
Resting in bed during routine rounds. Pt with low grade temp., encouraged to use IS more frequently. Obtaining 1500 with encouragement. VSS otherwise. Assessment otherwise unchanged from prior.
--- NOTE | 2023-09-06 12:04 | CM ---
Chart reviewed. Patient is independent of ADLS, lives with his dipesh 2 STH, 2 JOHNNY, 0 DME. Patient is outside of the driving radius for CT Transitional RN and his insurance does not cover VN in his area. Patient will need his chest tube
sutures removed before discharge. Plan is for the patient to return home. CM to follow
--- NOTE | 2023-09-06 15:48 | PTCARENOTE ---
VS obtained, assessment stable. Patient denies pain, ambulating in room ad rei, gait steady.
[2023-09-06] MEDS: LIPITOR 80 MG PO (17:03)
--- NOTE | 2023-09-06 21:31 | PTCARENOTE ---
Assumed care of patient at 1900. Patient found in bed with spouse at bedside at time of assessment. Patient is AOx4, follows commands appropriately, moves all extremities. Patient is now able to ambulate independently. Lung sounds are diminished
throughout, saO2 90% on RA, respirations are shallow. Heart sounds have a regular rate and rhythm, patient is NSR on the monitor, trace anasarca is noted, patient has normal palpable pulses. Patient has soft nontender obese abdomen with active BS.
Patient is voiding in urinal clear terese urine. Patient has a sternal incision approx with surg adhesive SALES AND PRODUCTION MANAGER, a L groin puncture approx with surg adhesive SALES AND PRODUCTION MANAGER, and LLE incisionx2 approx with surg adhesive SALES AND PRODUCTION MANAGER. VSS. Patient has no complaints at this
time.
[2023-09-06] MEDS: FLEXERIL 10 MG PO (22:37)
[2023-09-07] VITALS (9 sets, daily range): BP systolic 103–152; BP diastolic 67–88; PULSE 70; O2SAT 92–96; BMI 33.4
--- NOTE | 2023-09-07 01:14 | PTCARENOTE ---
Patient reassessed. Patient sleeping reports s/s of sleep apnea saO2 in low 80s on RA. Placed on 3L via NC for night saO2 improved to 89-90%. All other VSS. No complaints at this time. Patient is stable.
[2023-09-07 03:41] LABS: Hematocrit 30.1 % (39.0-52.0); Hemoglobin 10.3 g/dL (13.0-18.0); Mean Corp Hgb Conc. 34.2 g/dL (33.0-37.0); Mean Corpuscular Hgb 30.4 pg (27.0-31.0); Mean Corpuscular Volume 88.8 fL (80.0-94.0); Mean Platelet Volume 9.2 fL (7.4-10.4); Platelet Count 237 10^3/uL (130-400); Red Blood Cell Count 3.39 10^6/uL (4.70-6.10); Red Cell Dist. Width 13.9 % (11.5-14.5); White Blood Cell Count 10.7 10^3/uL (4.8-10.8)
[2023-09-07 03:54] LABS: Blood Urea Nitrogen 18 mg/dl (9-20); Calcium 8.4 mg/dl (8.4-10.2); Carbon Dioxide 27 mmol/L (22-30); Chloride 105 mmol/L (98-107); Estimated Creatinine Clearance 109 ml/min; Glucose 139 mg/dl (70-99); Magnesium 2.2 mg/dl (1.6-2.3); Potassium 3.8 mmol/L (3.5-5.1); Sodium 137 mmol/L (135-145); eGFR > 60.00
--- NOTE | 2023-09-07 04:10 | W.PN.CT ---
Addendum entered and electronically signed by Sean Badillo MD 09/07/23 09:18:
I saw and examined the patient.
The PA's note was reviewed and I agree with the note.
Comment:
POD#4 s/p CABG x 3, Encompass MAZE, ELAA
No major overnight events. HD stable. Sinus. RA.
- Continue ASA/plavix, BB, restart amlodipine, lipitor
- No need for NOAC per cardiology
- F/U 2-view CXR (done)
- OOB/IS/ambulate
- D/C home later today
Original Note:
Today's Communication / Plan
-
-No major issues overnight
-No drips
-Cont. current meds (ASA, Plavix, Lopressor, Lipitor, Protonix)
-F/U 2-view cxr
-Replete K, 3.8
-Encourage IS
-OOB into chair/Ambulate
-Will cut temporary PW before d/c home
-D/C chest tube sutures
-D/C home today (lives 1hr 30 min away)
Assessment / Plan
-
Assessment:
-S/p On pump Cabg x 3 ( Mckeon- lad, svg - om, svg - pda)/L EVH /maze - encompass RF ablation/ LAAL with 35 clip/ RSF , by Dr. Arciniega, 09/03/23, pod#4
-Severe 3v/70% distal LM CAD
-Hx [place] S/P PCI with YVONNE to prox. LAD and prox/mid RCA, 11/03/2012
-USA
-A-fib (on Eliquis @ home)
-LVEF 50% per intraop ROBERT
-HTN
-Hyperlipidemia
-Prediabetes (AIC 5.7)
-Class 1 obesity (BMI 33.3)
-Probable CHANTALE
-Bronchitis
-SOB
-Former tobacco abuse
-Hx of fatty liver (resolved 07/25/2016)
-Hx of lumbar disc herniation
-Hemorrhoids
-Benign colon polyps
-Anxiety/Depression
-S/p hemorrhoidectomy
-S/P ORIF of L Knee
-S/p vein stripping/ligation of RLE
-Acute postop blood loss/Anemia (stable without transfusion)
-Acute postop atelectasis
-Acute postop hypovolemia with subsequent hypervolemia
Discussed patient care with: Cardiology, Nursing, Respiratory Therapy, Pharmacy and Care Team
Subjective
Procedure
On pump Cabg x 3 ( Mckeon- lad, svg - om, svg - pda)/L EVH /maze - encompass RF ablation/ LAAL with 35 clip/ RSF , by Dr. Arciniega, 09/03/23
-
Date of Service: September 07, 2023
Pt c/o mild incisional pain, otherwise feels well
Objective Data
-
Lab Results
09/07/23 03:34
09/07/23 03:34
PT 17.5 Sec (11.4-14.6) H 09/03/23 11:39
INR 1.45 09/03/23 11:39
APTT 26.5 Sec (23.4-35.0) 09/03/23 11:39
Vital Signs
Vital Signs
Temp Pulse Resp BP Pulse Ox
98.7 F 79 20 128/81 97
09/07/23 03:00 09/07/23 04:00 09/07/23 03:00 09/07/23 03:26 09/07/23 03:00
CT Intake/Output/Weight
09/06/23 09/06/23 09/07/23
06:59 18:59 06:59
Intake Total 120 / 1130 630 / 630
Output Total 790 / 1160 0 / 0
Balance -670 / -30 630 / 630
SaO2: 97 (RA)
Physical Exam
-
General: Awake, Oriented and AOx3
Cardiovascular: Regular rate & rhythm, No Murmurs, No Rub and No Gallop
Respiratory: Decreased Breath Sounds (at bases, otherwise clear)
Sternum: Stable
Incision: Clean, Dry and Intact
Extremities: No Edema
Data Reviewed
-
Lab Results: Results Reviewed
Medications: Active Meds Reviewed
Chest X-Ray: Report Reviewed and Image Reviewed
ECG: Report Reviewed and Image Reviewed
--- NOTE | 2023-09-07 04:41 | PTCARENOTE ---
Patient reassessed. VSS. O2 weaned to 2L via NC. No c/o pain. Remains in SR on the monitor. Patient is stable.
[2023-09-07] MEDS: TYLENOL 1000 MG PO (07:19)
[2023-09-07] MEDS: LOPRESSOR 25 MG PO (08:23)
[2023-09-07] MEDS: ZOLOFT 100 MG PO (08:23)
[2023-09-07] MEDS: LOW STRENGTH ASPIRIN 81 MG PO (08:23)
[2023-09-07] MEDS: VITAMIN C 500 MG PO (08:23)
[2023-09-07] MEDS: PROTONIX 40 MG PO (08:23)
[2023-09-07] MEDS: MAGNESIUM OXIDE 500 MG PO (08:23)
[2023-09-07] MEDS: FLUSH (NSS) 1 FLUSH IV (08:23)
[2023-09-07] MEDS: NEURONTIN 200 MG PO (08:23)
[2023-09-07] MEDS: BACTROBAN 2% OINTMENT 1 APPLIC NASAL (08:23)
[2023-09-07] MEDS: PLAVIX 75 MG PO (08:23)
[2023-09-07] MEDS: SENOKOT-S PO (08:24)
[2023-09-07] MEDS: NSS IV (08:24)
--- NOTE | 2023-09-07 08:30 | PTCARENOTE ---
Assumed care of patient. Walking rounds completed with previous RN. Pt assessed while he was sitting in the chair. Pt alert and oriented x4. Denies pain, shortness of breath, and nausea. KING with equal strength throughout. Ambulated 200' without
assistance. NSR on tele with rates in the 90s. BP stable 123/77. Heart tones audible. Epicardial v-wire insulated. Bilateral radial and DP pulses palpable. No edema noted. POX 94% on RA. Lungs diminished in the bases. IS encouraged-1500ml achieved.
Occasional dry nonproductive cough noted. Abdomen soft, round, nontender. +BS. Pt reports BM this AM. Pt voiding independently, reports no issues. Sternal incision approximated with skin glue, HARVINDER. Old chest tube sites covered-CDI. Left groin
puncture approximated, Left SVG approximated and HARVINDER. Right hand PIV intact. See MAR for medication administration. See worklist for complete nursing assessment. Plan of care reviewed and patient in agreement.
--- NOTE | 2023-09-07 08:31 | W.DCSUMMARY ---
Discharge Summary
Discharge Data
Date of Admission: 09/03/23
Date of Discharge: 09/07/23
-
Pending Results: No
Hospital Course
Primary care physician: Letha Edwards
Outpatient frame table operator: Misbah Allison
Inpatient consultants: [facility] Cardiology
Procedures:
1. CABG x 3
Primary Diagnosis:
1. Coronary artery disease
Secondary Diagnoses:
1. History of DE with drug eluding stents to RCA and LAD (2013)
2. Hypertension
3. Hyperlipidemia
4. History of paroxysmal atrial fibrillation
5. Anxiety/depression
6. History of right lower extremity vein stripping and ligation
7. Prediabetes (AIC 5.7)
8. Class 1 obesity (BMI 33.3)
HPI: 63-year-old male electively admitted for CABG
Hospital course: Patient underwent CABG x 3 with HOOD to LAD, saphenous vein graft to PDA, saphenous vein graft to OM, Encompass maze, and left atrial appendage #35mm clip with Dr. Man Roberts on 09/03/2023. Patient received no intraoperative blood
products and was returned to CVICU on Levophed, insulin, and Precedex. Extubated at 1735. On postoperative day #1, the Ellison and mediastinal chest tubes were discontinued. Standard Aspirin and Plavix were initiated. On postoperative day #3, the
pleural chest tube was removed and patient was diuresed with Lasix. Eliquis was not resumed per cardiology due to remote nature of the atrial fibrillation. Temporary epicardial ventricular pacing wires were clipped to skin level. There is no
contraindication to obtaining MRI in the future if needed. 2 view chest x-ray reported no pleural effusion on day of discharge. Chest tube sutures were removed and sites were intact without erythema. Prophylactic amiodarone was discontinued on
discharge as there were no postoperative episodes of atrial fibrillation.
Home medication changes:
see below
Discharge Plan
-
Patient Disposition: Home (Routine Discharge)
Discharge Diagnosis/Procedures: CAD/CABG x 3, MAZE, Left atrial appendage clip
Condition: Good
Diet: Low Cholesterol and Low Sodium
Activity: No strenuous activity
Driving Restrictions: Not until seen by your Dr
Bathing Restrictions: OK to Shower
Other Services: Cardiac Rehab
Specialty Instructions: Weigh Daily- Call MD for wt gain/loss 3 lbs overnight/5 lbs in 1 week
Referrals:
Jacki Chacon PA-C [Specified Professional Personl] - 10/15/23 9:40 am
Carlos Arciniega MD [Active] - 09/30/23 10:15 am
UNKNOWN - PT DOES,NOT KNOW [Family Provider] -
Prescriptions:
New
oxycodone 5 mg Tablet
5 mg PO Q4HPRN PRN (Reason: severe pain) Qty: 20 0RF
clopidogrel 75 mg Tablet
75 mg PO DAILY Qty: 30 0RF
pantoprazole 40 mg Tablet,Delayed Release (Dr/Ec)
40 mg PO DAILY Qty: 30 0RF
acetaminophen 325 mg Tablet
650 mg PO Q4HPRN PRN (Reason: mild pain,headache,temp >101F ) Qty: 0 0RF
gabapentin 100 mg Capsule
200 mg PO TID Qty: 21 0RF
atenolol 50 mg tablet
50 mg PO DAILY Qty: 30 1RF
Continued
sertraline 100 MG tablet
100 mg PO DAILY
atorvastatin 80 MG tablet
80 mg PO QPM
Repatha SureClick 140 mg/mL Pen Injector
140 mg SC Q2W
Vitamin B-12
1 tab PO DAILY
Vitamin C
1 tab PO DAILY
Vitamin D3
1 tab PO DAILY
amlodipine 2.5 mg tablet
2.5 mg PO DAILY
aspirin 81 MG tablet,delayed release (DR/EC)
81 mg PO DAILY
Discontinued
nitroglycerin 0.4 MG tablet, sublingual
0.4 mg sublingual [id number] PRN (Reason: chest pain) Qty: 30 3RF
Patient Comments:
have not taken
Eliquis 5 mg Tablet
5 mg PO BID
ibuprofen 200 mg Tablet
600 mg PO Q6H PRN (Reason: pain)
vitamin E
1 tab PO DAILY
Discharge Orders:
Discharge Patient (As Directed); Ordered 09/07/23
Ordered By: Pati Iraheta
Care Plan Goals
Care Plan Goals:
Problem: Readiness for enhanced knowledge related to diagnosis and treatment plan
Goal: Understand your diagnosis and treatment plan needs, including medications if applicable.
Instructions: Know your diagnosis, underlying causes and treatment plan options, including medications if applicable. Consult with your health care team to learn about your diagnosis and treatment plan, including medications if applicable.
Discharge Date and Time
Print Language: ROMANIAN
[2023-09-07] MEDS: LIDOCAINE 4% PATCH 1 PATCH TOPICAL (08:33)
[2023-09-07] MEDS: KCL 20 MEQ PO (08:33)
--- NOTE | 2023-09-07 09:00 | PTCARENOTE ---
Epicardial v-wire cut with 2 RNs. Pt tolerated.
[2023-09-07] MEDS: PREVNAR 20 0.5 ML IM (12:05)
--- NOTE | 2023-09-07 12:15 | PTCARENOTE ---
Pt showered. Tolerated. Got dressed with minimal assistance from pt's .
--- NOTE | 2023-09-07 13:45 | PTCARENOTE ---
Discharge instructions reviewed with patient and his . Answered all questions. PIV removed. All belongings returned. Pt stable. Taken to car via wheelchair.
== END 2023-09-07 13:46 | disposition home or self-care (01) | DRG 234 ==
LOC: CVICU 04:55
PROVIDERS: Anesthesiology; Physician Assistant Medical; ADMITTING PHYSICIAN Thoracic Surgery (Cardiothoracic Vascular Surgery); CONSULT PHYSICIAN Internal Medicine Critical Care Medicine
PROC: 5A1221Z Performance of Cardiac Output, Continuous (ICD-10-PCS; 2023-09-03)
PROC: 02L70CK Occlusion of Left Atrial Appendage with Extraluminal Device, Open Approach (ICD-10-PCS; 2023-09-03)
PROC: 5A09357 Assistance with Respiratory Ventilation, Less than 24 Consecutive Hours, Continuous Positive Airway Pressure (ICD-10-PCS; 2023-09-03)
PROC: 06BQ4ZZ Excision of Left Saphenous Vein, Percutaneous Endoscopic Approach (ICD-10-PCS; 2023-09-03)
PROC: 02100Z9 Bypass Coronary Artery, One Artery from Left Internal Mammary, Open Approach (ICD-10-PCS; 2023-09-03)
PROC: 02580ZZ Destruction of Conduction Mechanism, Open Approach (ICD-10-PCS; 2023-09-03)
PROC: 021109W Bypass Coronary Artery, Two Arteries from Aorta with Autologous Venous Tissue, Open Approach (ICD-10-PCS; 2023-09-03)
PROC: B24BZZ4 Ultrasonography of Heart with Aorta, Transesophageal (ICD-10-PCS; 2023-09-03)
PROC: 3E0234Z Introduction of Serum, Toxoid and Vaccine into Muscle, Percutaneous Approach (ICD-10-PCS; 2023-09-07)
DX: I25.10 Atherosclerotic heart disease of native coronary artery without angina pectoris (principal); D62 Acute posthemorrhagic anemia; J98.11 Atelectasis; I48.0 Paroxysmal atrial fibrillation; E78.5 Hyperlipidemia, unspecified; I10 Essential (primary) hypertension; F32.A Depression, unspecified; F41.9 Anxiety disorder, unspecified; K76.0 Fatty (change of) liver, not elsewhere classified; R73.03 Prediabetes; E66.9 Obesity, unspecified; E86.1 Hypovolemia; E87.70 Fluid overload, unspecified; I25.5 Ischemic cardiomyopathy; G47.33 Obstructive sleep apnea (adult) (pediatric); I25.2 Old myocardial infarction; Z23 Encounter for immunization; Z68.33 Body mass index [BMI] 33.0-33.9, adult; Z79.01 Long term (current) use of anticoagulants; Z79.82 Long term (current) use of aspirin; Z79.899 Other long term (current) drug therapy; Z87.891 Personal history of nicotine dependence; Z95.5 Presence of coronary angioplasty implant and graft
CPT/HCPCS: 94727; 94729; 33259; 36415; 36600; 71045; 71046; 80048; 80053; 81003; 82248; 82330; 82565; 82805; 82947; 82962; 83036; 83735; 84132; 84302; 84520; 85014; 85018; 85025; 85027; 85049; 85610; 85730; 86803; 86850; 86900; 86901; 86920; 87070; 90677; 93005; 93312; 93320; 93325; 93880; 94002; 94010; C1713; G0009; P9045

== ENCOUNTER → 2023-09-14 09:42 | Outpatient (REF) | payer OTHER, SELFPAY | LOC: RAD 09:42 | PROVIDERS: ATTENDING PHYSICIAN Thoracic Surgery (Cardiothoracic Vascular Surgery) | DX: Z95.1 Presence of aortocoronary bypass graft (principal) | CPT/HCPCS: 71046 ==